=== PATIENT | female | born 1995 | race Caucasian/White ===

== ENCOUNTER 2018-09-16 20:05 | Emergency (ER) | payer MEDICAID ==
[2018-09-16 20:54] VITALS: BP 123/99
--- NOTE | 2018-09-17 00:41 | ER Document Report ---
ED Medical Screen (RME) - General Chief Complaint: Pelvic Pain Stated Complaint: PELVIC NUMBNESS Time Seen by Provider: 09/17/18 00:36 Primary Care Provider: CHANEL LAM PA-C [Primary Care Provider] - Follow up as needed Notes: Patient is a 23-year-old female presents to the emergency department with generalized numbness in her pelvic region. Patient states 10 days ago she started with generalized pain in her rectal region. States then 2 days ago she noted a generalized lack of feeling. States her rectum all the way to her vagina she "cannot feel it." She is denying any loss of bowel or bladder or urinary retention. States she tried to pass her stool yesterday and sat on the toilet" nothing came out." Patient states she does feel the urge to urinate and does urinate but when she wipes she states she "cannot feel it." Patient states she presents to an urgent care prior to arrival to the emergency room. States they did a rectal examination and the provider told her she had "no rectal tone." Told her to come to the emergency department for an MRI. GENERAL: Alert, interacts well. No acute distress. Rectal exam: [employer] [place] MYERS patient has good rectal tone and upon initial insertion of my right index finger patient says "oh my God what are you doing." I discussed this case with my attending Dr. Shin. Patient does appear to have good rectal tone and can obviously feel rectal examination based on the way she reacted to my digital exam. Patient states she felt "a lot of pressure." Dr. Shin and iron agreements that the patient can stay in the emergency department to receive her routine MRI in the morning as she is describing saddle anesthesia. At this point time there is no indication to emergently transfer to another facility for MRI. I discussed this with patient. Patient states she will wait in the waiting room. Currently awaiting bed assignment. I have greeted and performed a rapid initial assessment of this patient. A comprehensive ED assessment and evaluation of the patient, analysis of test results and completion of the medical decision making process will be conducted by additional ED providers. I have specifically instructed the patient or family members with the patient to immediately return to any nursing staff should anything change in the patient's condition or with their chief complaint. This medical record was dictated with voice recognizing software. There may be grammatical, syntax errors that are unintended. TRAVEL OUTSIDE OF THE [place] IN LAST 30 DAYS: No - Related Data Allergies/Adverse Reactions: No Known Allergies Allergy (Verified 04/17/15 00:07) Past Medical History Pulmonary Medical History: Reports: Hx Bronchitis Renal/ Medical History: Reports: Hx Ovarian Cysts Psychiatric Medical History: Reports: Hx Bipolar Disorder - No meds for 4 months Past Surgical History: Reports: Hx Adenoidectomy, Hx Dilation and Curettage, Hx Gynecologic Surgery - for endometriosis 2008. Right ovary and cyst and oophorectom in Nov 2014., Hx Oral Surgery, Hx Tonsillectomy - Immunizations Immunizations up to date: No Hx Diphtheria, Pertussis, Tetanus Vaccination: No Physical Exam - Vital signs Vitals: Temp Pulse Resp BP Pulse Ox 98.9 F 103 H 20 123/99 H 98 09/16/18 20:50 09/16/18 20:50 09/16/18 20:50 09/16/18 20:50 09/16/18 20:50 Course - Vital Signs Vital signs: Temp Pulse Resp BP Pulse Ox 98.9 F 103 H 20 123/99 H 98 09/16/18 20:50 09/16/18 20:50 09/16/18 20:50 09/16/18 20:50 09/16/18 20:50 Doctor's Discharge - Discharge Referrals: CHANEL LAM PA-C [Primary Care Provider] - Follow up as needed
== END 2018-09-17 00:50 | disposition left against medical advice (07) ==
LOC: ER 20:05
DX: R10.2 Pelvic and perineal pain (principal); R20.0 Anesthesia of skin; K62.89 Other specified diseases of anus and rectum
CPT/HCPCS: 99281

== ENCOUNTER 2018-09-17 08:34 | Emergency (ER) | payer MEDICAID ==
--- NOTE | 2018-09-17 09:10 | ER Document Report ---
ED Medical Screen (RME) - General Chief Complaint: Pelvic Pain Stated Complaint: PELVIC PAIN Time Seen by Provider: 09/17/18 09:02 Primary Care Provider: CHANEL LAM PA-C [Primary Care Provider] - Follow up as needed Mode of Arrival: Ambulatory Information source: Patient Notes: 23-year-old female patient presented to ED for complaint of generalized numbness to the pelvic region and rectal pain for 10 days. She states she went to her primary care doctor and they told her they did not feel any rectal tone and told her she needed to come to the emergency department to get an MRI. She was examined by the provider that saw her in pit yesterday evening and told that she did have rectal time and she could wait in the emergency room and be seen in waiting for a MRI in the morning or she can return to the emergency room and be examined and determine if she needed an MRI at that time. The provider stated that at the last night there was no need for an emergency transfer for an MRI. Patient stated at the time that she was going away but then left and went home. Patient is back now stating she wants her MRI. I have explained to her she needs to be examined by a provider to determine the need for a MRI. I have greeted and performed a rapid initial assessment of this patient. A comprehensive ED assessment and evaluation of the patient, analysis of test results and completion of medical decision making process will be conducted by an additional ED providers. Dictation of this chart was performed using voice recognition software; therefore, there may be some unintended grammatical errors. TRAVEL OUTSIDE OF THE [place] IN LAST 30 DAYS: No - Related Data Allergies/Adverse Reactions: No Known Allergies Allergy (Verified 04/17/15 00:07) Past Medical History Pulmonary Medical History: Reports: Hx Bronchitis Renal/ Medical History: Reports: Hx Ovarian Cysts Psychiatric Medical History: Reports: Hx Bipolar Disorder - No meds for 4 months Past Surgical History: Reports: Hx Adenoidectomy, Hx Dilation and Curettage, Hx Gynecologic Surgery - for endometriosis 2008. Right ovary and cyst and oophorectom in Nov 2014., Hx Oral Surgery, Hx Tonsillectomy - Immunizations Immunizations up to date: No Hx Diphtheria, Pertussis, Tetanus Vaccination: No Physical Exam - Vital signs Vitals: Temp Pulse Resp BP Pulse Ox 99.1 F 94 18 140/91 H 97 09/17/18 08:52 09/17/18 08:52 09/17/18 08:52 09/17/18 08:52 09/17/18 08:52 Course - Vital Signs Vital signs: Temp Pulse Resp BP Pulse Ox 99.1 F 94 18 140/91 H 97 09/17/18 08:52 09/17/18 08:52 09/17/18 08:52 09/17/18 08:52 09/17/18 08:52 Doctor's Discharge - Discharge Referrals: CHANEL LAM PA-C [Primary Care Provider] - Follow up as needed
--- NOTE | 2018-09-17 11:07 | RADIOLOGY REPORT (SQ) ---
EXAM DESCRIPTION: MRI LUMBAR SPINE WITHOUT COMPLETED DATE/TIME: 09/17/2018 10:49 am REASON FOR STUDY: lumbar mri numbness to pelvic area COMPARISON: None. TECHNIQUE: Sagittal and Axial imaging includes T1, T2, STIR and gradient echo sequences. Coronal T2/ HASTE imaging. LIMITATIONS: None. FINDINGS: VISUALIZED UPPER ABDOMEN: Limited evaluation. No acute or suspicious findings suggested. SEGMENTATION: No transitional anatomy. The lowest well-developed disc space is labeled L5-S1. ALIGNMENT: Anatomic. VERTEBRAE: Intact. BONE MARROW: Normal. No marrow replacement or reactive changes. DISC SIGNAL: There is disc desiccation and broad-based posterior disc bulging at L4-L5 and L5-S1. POSTERIOR ELEMENTS: Generally intact. No pars defect evident. HARDWARE: None in the spine. CORD AND CONUS: Normal in size and signal intensity. Conus at the appropriate level. SOFT TISSUES: No aortic aneurysm seen. No bulky retroperitoneal adenopathy or mass. No paraspinal mas s or fluid. L1-L2: No significant spinal stenosis or exit foraminal stenosis. L2-L3: No significant spinal stenosis or exit foraminal stenosis. L3-L4: No significant spinal stenosis or exit foraminal stenosis. L4-L5: No significant spinal stenosis or exit foraminal stenosis. L5-S1: No significant spinal stenosis or exit foraminal stenosis. LOWER THORACIC: Incompletely imaged. No stenosis seen. SACRUM: Visualized upper sacrum intact. OTHER: No other significant findings. IMPRESSION: There is disc desiccation and broad-based central posterior disc bulging at L4-L5 and L5 -S1. There is no high-grade lumbar canal or neural foraminal stenosis. TECHNICAL DOCUMENTATION: JOB ID: [id number] [employer]- All Rights Reserved Reading location - IP/workstation name: [id number]
--- NOTE | 2018-09-17 11:11 | ER Document Report ---
ED General - General Chief Complaint: Pelvic Pain Stated Complaint: PELVIC PAIN Time Seen by Provider: 09/17/18 09:02 Primary Care Provider: TREVOR COFFMAN MD [COMMUNITY BASED STAFF] - Follow up in 3-5 days (For neurosurgery follow up for low back pain) Mode of Arrival: Ambulatory TRAVEL OUTSIDE OF THE [place] IN LAST 30 DAYS: No - HPI Notes: 23-year-old female to the emergency department with complaints of lower back pain and rectal and vaginal decreased sensation. States that this has been going on for about 10 days and getting worse. States that she has not had any bladder or bowel incontinence, radiculopathy down the legs, fevers chills, IV drug abuse, recent injury, frequent bicycle riding. She was seen last night for the same and was supposed to get an MRI but left prior to getting MRI. States that she went to urgent care and was told to come back to the emergency department because she had some decrease in her rectal tone. States that she was given antibiotics last night for urinary tract infection as well. - Related Data Allergies/Adverse Reactions: No Known Allergies Allergy (Verified 04/17/15 00:07) Past Medical History - General Information source: Patient - Social History Smoking Status: Current Every Day Smoker Chew tobacco use (# tins/day): No Frequency of alcohol use: None Drug Abuse: None Family History: Reviewed & Not Pertinent, DM, Malignancy Patient has suicidal ideation: No Patient has homicidal ideation: No Pulmonary Medical History: Reports: Hx Bronchitis Renal/ Medical History: Reports: Hx Ovarian Cysts. Denies: Hx Peritoneal Dialysis Psychiatric Medical History: Reports: Hx Bipolar Disorder - No meds for 4 months Past Surgical History: Reports: Hx Adenoidectomy, Hx Cholecystectomy, Hx Dilation and Curettage, Hx Gynecologic Surgery - for endometriosis 2008. Right ovary and cyst and oophorectom in Nov 2014., Hx Oral Surgery, Hx Tonsillectomy - Immunizations Immunizations up to date: No Hx Diphtheria, Pertussis, Tetanus Vaccination: No Review of Systems - Review of Systems Constitutional: denies: Chills, Fever EENT: No symptoms reported Cardiovascular: denies: Chest pain, Palpitations, Dizziness, Lightheaded Gastrointestinal: Other - Rectal and vaginal decreased sensation. denies: No symptoms reported, Abdomen distended, Abdominal pain, Vomiting, Constipation Genitourinary: denies: Frequency, Urgency Musculoskeletal: Back pain Neurological/Psychological: No symptoms reported -: Yes All other systems reviewed and negative Physical Exam - Vital signs Vitals: Temp Pulse Resp BP Pulse Ox 99.1 F 94 18 140/91 H 97 09/17/18 08:52 09/17/18 08:52 09/17/18 08:52 09/17/18 08:52 09/17/18 08:52 Interpretation: Normal - General General appearance: Appears well In distress: None Notes: Morbid obesity - HEENT Head: Normocephalic, Atraumatic Eyes: Normal Pupils: PERRL - Respiratory Respiratory status: No respiratory distress Chest status: Nontender Breath sounds: Normal Chest palpation: Normal - Cardiovascular Rhythm: Regular Heart sounds: Normal auscultation Murmur: No - Abdominal Inspection: Normal Distension: No distension Bowel sounds: Normal Tenderness: Nontender Organomegaly: No organomegaly - Rectal Tenderness: No Stool: Other - She it has good rectal tone. She states that she has some decreased sensation during rectal exam but states that she can still feel pressure during exam Notes: rectal exam chaperoned by it field technician - Back Back: Tender - The midline tenderness to palpation over the L4 L5-S1 region with no step-off or deformity. Negative straight leg raise. Patient is able to ambulate about the room with no difficulty - Extremities General upper extremity: Normal inspection, Nontender, Normal color, Normal ROM, Normal temperature General lower extremity: Normal inspection, Nontender, Normal color, Normal ROM, Normal temperature, Normal weight bearing. No: Dariana's sign - Neurological Neuro grossly intact: Yes Cognition: Normal Orientation: AAOx4 [place] Coma Scale Eye Opening: Spontaneous [place] Coma Scale Verbal: Oriented Paty Coma Scale Motor: Obeys Commands [place] Coma Scale Total: 15 Speech: Normal Motor strength normal: LUE, RUE, LLE, RLE Sensory: Normal - Psychological Associated symptoms: Normal affect, Normal mood - Skin Skin Temperature: Warm Skin Moisture: Dry Skin Color: Normal Course - Vital Signs Vital signs: Temp Pulse Resp BP Pulse Ox 98.2 F 95 18 141/73 H 98 09/17/18 12:29 09/17/18 12:29 09/17/18 12:29 09/17/18 12:29 09/17/18 12:29 - Diagnostic Test Radiology reviewed: Image reviewed, Reports reviewed Radiology results interpreted by me: 09/17/18 MRI reading of L4-L5 and L5-S1 disc bulging and disc desiccation. She has no evidence of spinal abscess, or cauda equina, - Transfer of Care Notes: 09/17/[address] Fletcher. We reviewed MRI together. Will plan on having patient follow with [facility] [employer] specialist outpatient. Will send home with pain meds as well as medrol dose rachel. Urged her to return if any bladder/bowel incontinence, urinary retention. Discharge - Discharge Clinical Impression: Low back pain, Bulging lumbar disc, Numbness Condition: Good Disposition: HOME, SELF-CARE Instructions: Low Back Pain ([facility]) Additional Instructions: FOLLOW UP WITH NEUROSURGERY WITHOUT FAIL. CALL THEM TOMORROW. RETURN IF WORSENING PAIN, BLADDER/BOWEL INCONTINENCE, FEVERS, OR ANY OTHER CONCERNS. Prescriptions: Hydrocodone/Acetaminophen [Bertram 5-325 Tablet] 1 each PO Q6H #12 tablet Methylprednisolone [Medrol Dosepack (4 mg/Tab) 21 Tab/Dosepak] 4 mg PO ASDIR PRN #21 tab.ds.pk PRN Reason: Forms: Return to Work Referrals: TREVOR COFFMAN MD [COMMUNITY BASED STAFF] - Follow up in 3-5 days (For neurosurgery follow up for low back pain)
[2018-09-17 12:35] VITALS: BP 141/73
== END 2018-09-17 12:35 | disposition home or self-care (01) ==
LOC: ER 08:34
DX: M51.86 Other intervertebral disc disorders, lumbar region (principal); M54.5 Low back pain; R20.0 Anesthesia of skin; F17.200 Nicotine dependence, unspecified, uncomplicated
CPT/HCPCS: 72148; 99283

== ENCOUNTER 2019-07-29 07:58 | Emergency (ER) | payer SELFPAY ==
[2019-07-29 08:28] LABS: ABSOLUTE EOSINOPHILS # (AUTO) 0.2 10^3/uL (0.0-0.6); ABSOLUTE LYMPHOCYTES (AUTO) 2.5 10^3/uL (0.5-4.7); ABSOLUTE MONOCYTES (AUTO) 0.5 10^3/uL (0.1-1.4); ABSOLUTE NEUT (AUTO) 6.9 10^3/uL (1.7-8.2); BASOPHILS % (AUTO) 0.4 % (0-2); HEMATOCRIT 43.8 % (36.0-47.0); HEMOGLOBIN 14.7 g/dL (12.0-15.5); LYMPHOCYTES % (AUTO) 24.1 % (13-45); MEAN CORPUSCULAR HEMOGLOBIN 28.6 pg (27.0-33.4); MEAN CORPUSCULAR HGB CONC 33.5 g/dL (32.0-36.0); MEAN CORPUSCULAR VOLUME 86 fl (80-97); MONOCYTES % (AUTO) 5.3 % (3-13); PLATELET COUNT 319 10^3/uL (150-450); RED BLOOD COUNT 5.12 10^6/uL (3.72-5.28); RED CELL DISTRIBUTION WIDTH 15.7 % (11.5-14.0); SEGMENTED NEUTROPHILS % (AUTO) 68.2 % (42-78); TOTAL CELLS COUNTED % (AUTO) 100 %; WHITE BLOOD COUNT 10.2 10^3/uL (4.0-10.5)
[2019-07-29 08:52] LABS: ALBUMIN 4.6 g/dL (3.5-5.0); ALKALINE PHOSPHATASE 61 U/L (38-126); ANION GAP 10 (5-19); ASPARTATE AMINO TRANSFERASE 24 U/L (14-36); BILIRUBIN,TOTAL 0.3 mg/dL (0.2-1.3); BLOOD UREA NITROGEN 13 mg/dL (7-20); CALCIUM 9.7 mg/dL (8.4-10.2); CARBON DIOXIDE 25 mmol/L (22-30); CHLORIDE 103 mmol/L (98-107); CREATINE KINASE 81 U/L (30-135); GLUCOSE 132 mg/dL (75-110); POTASSIUM 4.1 mmol/L (3.6-5.0); TOTAL PROTEIN 7.2 g/dL (6.3-8.2)
--- NOTE | 2019-07-29 08:53 | RADIOLOGY REPORT (SQ) ---
EXAM DESCRIPTION: CHEST SINGLE VIEW IMAGES COMPLETED DATE/TIME: 07/29/2019 8:38 am REASON FOR STUDY: right sided cp COMPARISON: 02/18/2014 EXAM PARAMETERS: NUMBER OF VIEWS: One view. TECHNIQUE: Single frontal radiographic view of the chest acquired. RADIATION DOSE: NA LIMITATIONS: Poor inspiratory effort. FINDINGS: LUNGS AND PLEURA: No opacities, masses or pneumothorax. No pleural effusion. MEDIASTINUM AND HILAR STRUCTURES: No masses. Contour normal. HEART AND VASCULAR STRUCTURES: Heart normal in size. Normal vasculature. BONES: No acute findings. HARDWARE: None in the chest. OTHER: No other significant finding. IMPRESSION: NO ACUTE RADIOGRAPHIC FINDING IN THE CHEST. TECHNICAL DOCUMENTATION: JOB ID: [id number] 2010 [employer]- All Rights Reserved Reading location - IP/workstation name: [email or web address]
[2019-07-29 09:12] LABS: CREATINE KINASE MB 0.64 ng/mL (<4.55)
[2019-07-29 09:13] LABS: TROPONIN I < 0.012 ng/mL
[2019-07-29] MEDS ORDERED: KETOROLAC TROMETHAMINE INJ/PF 30 MG/1 ML SDV IV ONE (10:16)
--- NOTE | 2019-07-29 12:07 | ER Document Report ---
Entered by PONCE CORREA SCRIBE 07/29/19 0914 Acting as scribe for:KATLIN MCKEE MD ED General - General Chief Complaint: Chest Pain Stated Complaint: RIB PAIN Time Seen by Provider: 07/29/19 08:54 Information source: Patient Notes: This 24-year-old female presents to the emergency department complaining of right-sided chest wall pain for the past 2-3 days. Patient explains that the chest wall pain woke her from her sleep this morning. Patient states that her chest wall pain is worsened with coughing. Patient reports chronic cough that is non-productive. Patient states "I smoke to many cigarettes" and "I cough all the time but now my chest hurts". Patient denies fever, chills, nausea, vomiting and covid-19 exposure. Patient reports recent travel to [place] 6 days ago. TRAVEL OUTSIDE OF THE [place] IN LAST 30 DAYS: No - Related Data Allergies/Adverse Reactions: No Known Allergies Allergy (Verified 04/17/15 00:07) Past Medical History - General Information source: Patient - Social History Smoking Status: Current Every Day Smoker Cigarette use (# per day): Yes Chew tobacco use (# tins/day): No Frequency of alcohol use: None Drug Abuse: None Family History: Reviewed & Not Pertinent, DM, Malignancy Patient has homicidal ideation: No Pulmonary Medical History: Reports: Hx Bronchitis Renal/ Medical History: Reports: Hx Ovarian Cysts Psychiatric Medical History: Reports: Hx Anxiety, Hx Bipolar Disorder - No meds for 4 months, Hx Depression Past Surgical History: Reports: Hx Adenoidectomy, Hx Cholecystectomy, Hx Dilation and Curettage, Hx Gynecologic Surgery - for endometriosis 2008. Right ovary and cyst and oophorectom in Nov 2014., Hx Oral Surgery, Hx Tonsillectomy - Immunizations Immunizations up to date: No Hx Diphtheria, Pertussis, Tetanus Vaccination: No Review of Systems - Review of Systems Constitutional: See HPI. denies: Fever EENT: No symptoms reported Cardiovascular: See HPI, Chest pain Respiratory: See HPI, Cough Gastrointestinal: See HPI. denies: Nausea, Vomiting Genitourinary: No symptoms reported Female Genitourinary: No symptoms reported Musculoskeletal: No symptoms reported Skin: No symptoms reported Hematologic/Lymphatic: No symptoms reported Neurological/Psychological: No symptoms reported -: Yes All other systems reviewed and negative Physical Exam - Vital signs Vitals: Resp Pulse Ox 19 96 07/29/19 08:15 07/29/19 08:15 - Notes Notes: Physical Exam: General: Alert, appears well. HEENT: Normocephalic. Atraumatic. PERRL. Extraocular movements intact. Oropharynx clear. Neck: Supple. Non-tender. Respiratory: No respiratory distress. Clear and equal breath sounds bilaterally. Reproducible right-sided chest wall pain that is greater with a deep breath. No crepitus, bruise or rash. Cardiovascular: Regular rate and rhythm. Abdominal: Obese. Non-tender. No distension. Normal Bowel Sounds. Back: No gross abnormalities. Extremities: Moves all four extremities. Upper extremities: Normal inspection. Normal ROM. Lower extremities: Normal inspection. No edema. Normal ROM. Neurological: Normal cognition. AAOx4. Normal speech. Psychological: Normal affect. Normal Mood. Skin: Warm. Dry. Normal color. Course - Re-evaluation Re-evalutation: 07/29/19 10:57 Patient complains of right sided lower anterior chest wall pain from coughing. Denies any productive sputum denies fever chills. Does smoke tobacco. Patient reports no signs or symptoms of COVID 19 virus denies fever chills sore throat. Denies any exposure that she is aware to the COVID-19 virus. 07/29/19 12:01 Patient reports that her chest wall pain has improved after treatment with IV ketorolac. - Vital Signs Vital signs: Temp Pulse Resp BP Pulse Ox 98.1 F 33 H 139/84 H 98 07/29/19 08:31 07/29/19 09:03 07/29/19 09:03 07/29/19 09:03 - Laboratory Result Diagrams: 07/29/19 08:12 07/29/19 08:12 Laboratory results interpreted by me: 07/29/19 07/29/19 08:12 08:12 RDW 15.7 H Glucose 132 H 07/29/19 10:58 Labs within normal limits. Including d-dimer is not elevated. Doubt if patient has pulmonary embolus with that result. 07/29/19 12:02 Laboratories within normal limits not showing any acute process blood sugar 132. Initial troponin negative for any acute process inasmuch as patient's pain is right-sided and patient has no risk factors other than smoking for cardiac disease doubt that is any coronary artery disease in this patient with low risk therefore a second troponin was not ordered. - Diagnostic Test Radiology reviewed: Reports reviewed Radiology results interpreted by me: 07/29/19 12:03 Chest x-ray disclose no acute process. - EKG Interpretation by Me Additional EKG results interpreted by me: 07/29/19 12:03 Twelve-lead EKG shows normal sinus rhythm rate of 91 inferior Q waves noted as a normal variant no acute process noted. Discharge - Discharge Clinical Impression: Chest wall pain, Tobacco abuse disorder Condition: Stable Disposition: HOME, SELF-CARE Instructions: Chest Wall Pain ([facility]) Prescriptions: Ibuprofen [Motrin 800 mg Tablet] 800 mg PO Q8H PRN #30 tab PRN Reason: pain Forms: Smoking Cessation Education I personally performed the services described in the documentation, reviewed and edited the documentation which was dictated to the scribe in my presence, and it accurately records my words and actions.
[2019-07-29 12:31] VITALS: BP 119/79
--- NOTE | 2019-07-29 21:36 | EKG REPORT ---
SEVERITY:- BORDERLINE ECG - SINUS RHYTHM INFERIOR Q WAVES, PROBABLY NORMAL VARIATION : Confirmed by: Duran Badillo MD 29-Jul-2019 21:36:03
== END 2019-07-29 12:28 | disposition home or self-care (01) ==
LOC: ER 07:58
DX: R07.89 Other chest pain (principal); R05 Cough; F17.210 Nicotine dependence, cigarettes, uncomplicated
CPT/HCPCS: 93005; 99284; 96374; 36415; 82553; 82550; 85025; 80053; 84484; 85379; 71045; 93010; J1885

== ENCOUNTER 2020-02-02 00:13 | Emergency (ER) | payer OTHER ==
[2020-02-02 00:39] VITALS: BP 144/92
--- NOTE | 2020-02-02 00:43 | ER Document Report ---
ED Medical Screen (RME) - General Chief Complaint: Shortness Of Breath Stated Complaint: SHORTNESS OF BREATH,EYE PAIN Time Seen by Provider: 02/02/20 00:24 Mode of Arrival: Ambulatory Information source: Patient Notes: Patient is a 24-year-old female comes emergency room complaining of complaints. First of all patient is primary reason for coming in is because of her left upper eyelid being swollen and painful. And the second reason she is here because she thinks she has bronchitis. 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 She denies any fever but states she does not take her temperature. He has no history of asthma or other medical problems and is currently on no medications. She does smoke approximately half a pack of cigarettes a day. Patient denies any productive cough at this time. She has complaints of being short of breath. Physical examination: Patient is a well-nourished well-developed 24-year-old female no apparent distress on examination this morning. Cardiac: Shows a tachycardic rate at about 140 bpm. Her blood pressure was 144/92 and first saturation was 99% on room air with a temp of 97.8. Next Lungs: Bilateral breath sounds breath sounds decreased throughout no rhonchi rales or wheeze heard. Abdomen: Bowel sounds present all 4 quads nontender to palpate. HEENT: Examination patient's left thigh shows the upper lid to be moderately swollen mildly tender to palpate. There is no discharge noted from the area. There is a firm nodule palpated in the middle of the upper right of it. Further examination of the does not show any injection of the sclera or conjunctiva. Inform patient that she currently has hordeolum on the left upper eye. Needs an antibiotic cream and you can compresses. She is also informed and asked if she wants a Covid test and further work-up and she admits that she knows. At this time we will just do a chest x-ray since she has no fever and vital signs are relatively stable and a Covid test. Given those findings provider may decide to go further. Do not feel it is necessary for any blood work at this time I have greeted and performed a rapid initial assessment of this patient. A comprehensive ED assessment and evaluation of the patient, analysis of test results and completion of the medical decision making process will be conducted by additional ED providers. Dictation of this chart was performed using voice recognition software; therefore, there may be some unintended grammatical errors. TRAVEL OUTSIDE OF THE [place] IN LAST 30 DAYS: No - Related Data Allergies/Adverse Reactions: No Known Allergies Allergy (Verified 02/02/20 00:31) Past Medical History - Social History Frequency of alcohol use: None Drug Abuse: None Pulmonary Medical History: Reports: Hx Bronchitis Neurological Medical History: Denies: Hx Parkinson's Disease Renal/ Medical History: Reports: Hx Ovarian Cysts. Denies: Hx Peritoneal Dialysis Psychiatric Medical History: Reports: Hx Anxiety, Hx Bipolar Disorder - No meds for 4 months, Hx Depression Past Surgical History: Reports: Hx Adenoidectomy, Hx Cholecystectomy, Hx Dilation and Curettage, Hx Gynecologic Surgery - for endometriosis 2008. Right ovary and cyst and oophorectom in Nov 2014., Hx Oral Surgery, Hx Tonsillectomy - Immunizations Immunizations up to date: No Hx Diphtheria, Pertussis, Tetanus Vaccination: No
--- OUTSIDE RECORDS SUMMARY | 2020-02-03 17:48 | XMS REPORT ---
:1995 [facility] [address] [place] [address] Care Team Providers Name Role Phone [facility] Primary Care Physician Unavailable Stacy Attending Clinician Unavailable Jackelyn LOUIE Attending Clinician Unavailable Aron Attending Clinician Unavailable MD Grecia Sunshine Attending Clinician Unavailable MD Epi Mann Attending Clinician Unavailable DO Edward Jenkins Attending Clinician Unavailable Edward Noel Attending Clinician Unavailable MD Bess Johnson Attending Clinician Unavailable MD Kedar Rodriguez Attending Clinician Unavailable MD James Escobedo Attending Clinician Unavailable Ferny Attending Clinician Unavailable Checo Attending Clinician Unavailable MD Ghazala Attending Clinician Unavailable MD Grecia Sunshine Admitting Clinician Unavailable MD Epi Mann Admitting Clinician Unavailable MD Kedar Rodriguez Admitting Clinician Unavailable MD James Escobedo Admitting Clinician Unavailable Ferny Admitting Clinician Unavailable Checo Admitting Clinician Unavailable Allergies, Adverse Reactions, Alerts This patient has no known allergies or adverse reactions. Medications Ordered Filled Start Stop Current Ordering Indication Dosage Frequency Signature Comments Components Medication Medication Date Date Medication? Clinician (SIG) Name Name lamoTRIgine Yes TAKE 1 TAKE 1 (LAMICTAL) 6-03 TABLET BY TABLE T BY 25 MG 00:00: MOUTH ONCE MOUTH tablet 00 DAILY FOR ONCE 2 WEEKS DAILY FOR AND THEN 2 WEEKS INCREASE AND THEN TO 2 ONCE INCREASE DAILY TO 2 ONCE DAILY traZODone Yes TAKE 1 TAKE 1 (DESYREL) 6-03 TABLET BY TABLET BY 100 MG 00:00: MOUTH AT MOUTH AT tablet 00 BEDTIME BEDTIME NEEDED NEEDED Robitussin Yes Murray 2 Every 6 Codeine 4-23 Hills Hours as 00:00: needed for 00 Pain Trimethopri 2018- No Griffin 1 Twice A m/Sulfameth -14 18 Alfred Dc Day oxazole 00:00: 00:00 (Septra Ds 00 :00 Tablet) 1 Each Tablet, 1 Tab Oral bupivacaine Yes ELLI III 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 for pain. ibuprofen 2019- No 600mg Take 1 Take 1 (ADVIL,MOTR 05-02 tablet tablet IN) 600 MG 00:00: 00:00 (600 mg (600 m g tablet 00 :00 total) by total) by mouth mouth every six every six (6) hours (6) hours as needed as needed for pain. for pain. sertraline 2016-03- No 100mg Take 2 Take 2 (ZOLOFT) 50 05-14 tablets tablet s MG tablet 00:00: 00:00 (100 mg (100 mg 00 :00 total) by total) by mouth mouth daily. daily. Amoxicillin 2016-03 Ally 500 Three (Amoxil) 2-15 12-30 Pac Hamm Times A 500 Mg 00:00: 00:00 Day Tablet, 500 00 :00 Mg Oral Lidocaine 2016-03 Ally 5 Every 6 Hcl 2-15 12-30 Pac Hamm Hours as (Lidocaine 00:00: 00:00 needed for Viscous 2% 00 :00 Pain Topical Soln) 100 Ml Soln, 5 Ml Oral Ibuprofen 2016-03 Yes Jamette 600 Every 6 (Motrin) 2-04 Bryson Do Hours for 600 Mg 00:00: Pain Tablet 00 Oxycodone/A 2016-03 Yes Jamette 1 Every 6 cetaminophe 2-04 Bryson Do Hours for n (Percocet 00:00: Pain 5/325) 1 00 Tab Tablet Sertraline 2016-03 Yes 50 Daily Hcl 0-09 (Zoloft) 50 04:33: Mg Tablet 44 promethazin 2015-03 2017- No 180 promethazi e 25 mg 0-27 02-20 ne 25 mg tablet 00:00: 00:00 tablet(RxN 00 :00 orm: [id number]) Ortho 2015-03 2017- No 28 Ortho Tri-Cyclen 0-27 02-20 Tri-Cyclen (28) 0.18 00:00: 00:00 (28) 0.18 mg(7)/0.215 00 :00 mg(7)/0.21 mg(7)/0.25 5 mg(7)-35 mg(7)/0.25 mcg tablet mg(7)-35 mcg tablet(RxN orm: -) famotidine Yes 20mg Take 20 mg Dwayne e 20 (PEPCID) 20 5-09 by mouth. mg b y MG tablet 00:00: mouth. 00 lurasidone Yes 40mg Take 40 mg Take 40 (LATUDA) 40 by mouth mg by mg Tab daily with mouth evening daily meal. with evening meal. clonazePAM Yes .5mg Take 0.5 Take 0 .5 (KLONOPIN) mg by mg by 0.5 MG mouth mouth tablet nightly as nightly needed for as needed anxiety. for anxiety. cyanocobala 2020- No 1000ug Take 1,000 Ta ke min 1000 06- mcg by 1,000 mcg MCG tablet 00:00 mouth by mouth :00 daily. daily. calcium 2020- No 500mg Chew 500 Chew 500 carbonate 06-23 mg. mg. (TUMS) 200 00:00 mg calcium :00 (500 mg) chewable tablet prenat.vits 2020- No Take by Take b y ,guido,min-ir 06- mouth. mouth. on-folic 00:00 Tab tablet :00 pantoprazol 2020- No 40mg Take 40 mg Dwayne e 40 e 06-23 by mouth mg by (PROTONIX) 00:00 daily. mouth 40 MG :00 daily. tablet cariprazine 2019- No 3mg Take 3 mg Take 3 mg (VRAYLAR) 3 -23 by mouth by mo uth mg cap 00:00 daily. daily. :00 cyanocobala 2020- No Inject Inject min 1,000 06-23 into the into th e mcg/mL 00:00 muscle muscle injection :00 every every thirty thirty (30) days. (30) days. 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 05-02 12:00:46 of cervix of cervix 00:00: (ELLI II) (ELLI II) 00 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 00:00: 00 Tonsillitis Exudative Problem Resolve 2016-03 with tonsillitis d 2-15 exudate 23:21: 00 Tonsillitis Exudative Problem Resolve 2016-03 with tonsillitis d 2-15 exudate 23:21: 00 Viral upper Viral upper Problem Resolve 2016-03 respiratory respiratory d 2-15 tract illness 21:06: infection 00 Bipolar Bipolar Condition Active 2016-032017-02-11 affective affective 04-13 20:45:09 disorder, disorder, 00:00: depressed, depressed, 00 moderate moderate H/O H/O Condition Active 2016-11-14 Ove rview: laparoscopy laparoscopy 07-04 19:03:49 Three for 00:00: endometr i 00 osis one for ovarian torsion. Removal of right ovary an d tube. FHx: Down's FHx: Down's Condition Active 2016-11-14 Overview: syndrome syndrome 07-04 19:05:46 FOB h as 00:00: family 00 history of down syndrome and mental retardat i on. 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 Hayden. - - Problem Active urine test urine test 2-20 confirms confirms(SN 00:00: OMED CT: 00 [id number]) 05/13/2016 active Contracepti Contracepti Problem Active 2015-03 on on(SNOMED 0-27 CT: 00:00: [id number]) 01/18/2016 active Weight Weight Problem Active 2015-03 finding finding(SNO 0-[address]: 00:00: [id number]) 01/18/2016 active Follow-up Follow-up Problem Active 2015-03 status status(SNOM 0-[address]: 00:00: [id number]) 01/18/2016 active H/O: H/O: Problem Active 2015-03 depression depression( 0-[address]: 00:00: [id number]) 01/18/2016 active Low risk Low risk Problem Active (S 9-[address]: 00:00: [id number]) 11/29/2015 active High risk High risk Problem Active (S 9-[address]: 00:00: [id number]) 00 11/29/2015 active Pap smear Pap smear [id number] Active 2019-09-14 abnormality abnormality 4-11 13:17:17 of cervix of cervix 00:00: with LGSIL with LGSIL 00 Generalized Generalized [id number] Active 2019-09-14 anxiety anxiety 3-17 13:17:16 disorder disorder 00:00: 00 Obesity Obesity [id number] Active 2019-09-14 3-17 13:17:16 00:00: 00 Depression Depression [id number] Active 2019-09-14 3-17 13:17:17 00:00: 00 Tobacco Tobacco [id number] Active 2019-09-14 abuse abuse 3-17 13:17:17 00:00: 00 Ovarian Ovarian [id number] Active 2019-09-14 cyst cyst 8-27 13:17:16 00:00: 00 High-risk High-risk Condition Resolve 2017-05-02 d 9-15 00:00:00 in third in third 00:00: trimester trimester 00 Obesity Obesity Condition Resolve 2017-05-02 affecting affecting d 4-13 00:00:00 00:00: in third in third 00 trimester trimester Tobacco Tobacco Condition Resolve 2017-05-02 smoking smoking d 4-13 00:00:00 complicatin complicatin 00:00: g g 00 in third in third trimester trimester Pre-operati Pre-operati Condition Resolve 2017-05-02 ve ve d 4-13 00:00:00 evaluation evaluation 00:00: for tubal for tubal 00 ligation ligation Depression Depression Condition Resolve 2017-05-02 affecting affecting d 4-13 00:00:00 00:00: in third in third 00 trimester, trimester, antepartum antepartum (NADER-HCC) (NADER-HCC) Procedures Procedure Date / Time Performed Performing Clinician [facility] e OFFICE/OUTPATIENT VISIT [facility] 2018-03-05 13:30:00 X-ray of chest, PA and lateral 2017-07-05 00:00:00 RYSEWYK, BREN T views X-ray of chest, PA and lateral 2017-07-05 00:00:00 RYSEWYK BREN T views Auto OV Level 2017-04-07 00:00:00 Anesthesia for procedure 2017-02-24 00:00:00 KESHA GAINES Anesthesia for intraperitoneal 2017-02-24 00:00:00 NABILA GAINES procedure of lower abdomen LAPAROSCOPY TUBAL CAUTERY 2017-02-24 00:00:00 TITO BRYSON Anesthesia for procedure 2017-02-24 00:00:00 KESHA GAINES Anesthesia for intraperitoneal 2017-02-24 00:00:00 NABILA GAINES procedure of lower abdomen LAPAROSCOPY TUBAL CAUTERY 2017-02-24 00:00:00 TITO BRYSON Anesthesia for procedure 2017-02-24 00:00:00 KESHA GAINES Anesthesia for intraperitoneal 2017-02-24 00:00:00 SABIHA GAINESI E procedure of lower abdomen Epidural injection 2017-01-03 00:00:00 RAMÓN MUNOZ DELIVERY OF PRODUCTS OF CONCEPTION, 2017-01-03 00:00:00 TITO BRYSON EXTERNAL APPROACH Epidural injection 2017-01-03 00:00:00 RAMÓN MUNOZ INTRODUCTION OF OTH HORMONE INTO 2017-01-02 00:00:00 CHRISTOPHE BRYSON PERIPH VEIN, PERC APPROACH Auto OV Level 2016-08-02 00:00:00 Results Test Description Test Time Test Comments Text Results Atomic Results Result Comments HEMOGLOBIN A1c WITH eAG 2018-03-05 14:36:00 Test Item Value Reference Range Comments HEMOGLOBIN A1c (test code = 56005854) 5.2 % of total Hgb <5.7 eAG (mg/dL) (test code = 38645913) 103 (calc) eAG (mmol/L) (test code = 46002528) 5.75.75.75.7 (calc) LIPID PANEL, [id number] 14:36:00 Test Item Value Reference Range Comments TRIGLYCERIDES (test code = 78398393) 163701 mg/dL <150 HDL CHOLESTEROL (test code = 00091346) 3737 mg/dL >50 CHOLESTEROL, TOTAL (test code = 109 mg/dL <200 27551245) NON HDL CHOLESTEROL (test code = 72 mg/dL (calc) <130 03603974) CHOL/HDLC RATIO (test code = 45879684) 2.92.9 (calc) <5.0 LDL-CHOLESTEROL (test code = 30365748) 189476 mg/dL (calc) CBC (INCLUDES DIFF/PLT)2018-03-05 14:36:00 Test Item Value Reference Range Comments LYMPHOCYTES (test code = 41636656) 30.6 % ABSOLUTE BASOPHILS (test code = 86741792) 34 cells/uL 0-200 HEMATOCRIT (test code = 63985047) 42.6 % 35.0-45.0 MONOCYTES (test code = 58710931) 5.2 % HEMOGLOBIN (test code = 92887971) 14.2 g/dL 11.7-15.5 BASOPHILS (test code = 41740878) 0.30.3 % NEUTROPHILS (test code = 55829237) 62.6 % ABSOLUTE LYMPHOCYTES (test code = 94836408) 3427 cells/uL 850- 3900 RDW (test code = 39675646) 13.4 % 11.0-15.0 ABSOLUTE NEUTROPHILS (test code = 57937194) 7011 cells/uL 1500 -7800 ABSOLUTE MONOCYTES (test code = 71892684) 582 cells/uL 200-95 0 ABSOLUTE EOSINOPHILS (test code = 82035316) 146 cells/uL 15-5 00 MCH (test code = 10063697) 28.5 pg 27.0-33.0 MPV (test code = 30726531) 10.1 fL 7.5-12.5 MCHC (test code = 34670340) 33.3 g/dL 32.0-36.0 RED BLOOD CELL COUNT (test code = 46726412) 4.99 Million/uL 3.80 -5.10 EOSINOPHILS (test code = 08666761) 1.3 % MCV (test code = 40131180) 85.4 fL 80.0-100.0 WHITE BLOOD CELL COUNT (test code = 11.2 Thousand/uL 3.8-10.8 19998775) PLATELET COUNT (test code = 70577879) 331 Thousand/uL 140-400 VITAMIN D,25-OH,TOTAL,GA4683-36-14 14:36:76233040TINYKWT9628-03-32 14:36:0028.2 COMPREHENSIVE METABOLIC [id number] 14:36:00 Test Item Value Reference Range Comments ALT (test code = 97469920) 27 U/L 6-29 ALBUMIN/GLOBULIN RATIO (test 2.2 (calc) 1.0-2.5 code = 56798970) ALBUMIN (test code = 4.7 g/dL 3.6-5.1 99406346) CARBON DIOXIDE (test code = 26 mmol/L 20-32 79083951) PROTEIN, TOTAL (test code = 6.8 g/dL 6.1-8.1 88366407) CREATININE (test code = 0.67 mg/dL 0.50-1.10 56345136) BILIRUBIN, TOTAL (test code = 0.3 mg/dL 0.2-1.2 92199631) UREA NITROGEN (BUN) (test 10 mg/dL 7-25 code = 29518524) SODIUM (test code = 48678651) 142 mmol/L 135-146 CHLORIDE (test code = 106 mmol/L 98-110 77361393) AST (test code = 93432429) 16 U/L 10-30 BUN/CREATININE RATIO (test NOT APPLICABLENOT APPLICABLE 6-22 code = 85270190) (calc) CALCIUM (test code = 9.7 mg/dL 8.6-10.2 05204990) POTASSIUM (test code = 4.3 mmol/L 3.5-5.3 36052331) ALKALINE PHOSPHATASE (test 63 U/L 33-115 code = 32116314) eGFR (test 143 mL/min/1.73m2 > OR = 60 code = 76265006) GLUCOSE (test code = 75 mg/dL 65-99 20546468) GLOBULIN (test code = 2.1 g/dL (calc) 1.9-3.7 63544223) eGFR NON-AFR. ARMENIAN (test 123 mL/min/1.73m2 > OR = 60 code = 30330219) USH2576-94-95 14:36:000.990.990.990.990.99VITAMIN [id number] 14:36:91593280 Group A Streptococcus Vkymae6675-90-72 02:16:00 Test Item Value Reference Range Comments Screening Streptococcus pyogenes antigen detection POSITIVE NEG (test code = 15227-2) RESULTS CALLED AND CORRECTLY READ BACK BY JULIET CORRIGAN AT 0215 FOR HANNA CLAROS MR# [id number] 19:05:00 Test Item Value Reference Range Comments Serum or plasma glucose measurement (mass/volume) 103 74-99 (test code = 2345-7) Blood Urea Auvvamkg5986-56-99 19:05:00 Test Item Value Reference Range Comments Serum or plasma urea nitrogen measurement 10 7-18 (mass/volume) (test code = 3094-0) Qovshqotbc7865-93-00 19:05:00 Test Item Value Reference Range Comments Serum or plasma creatinine measurement (mass/volume) 0.65 0.60-1.30 (test code = 2160-0) BUN/Creatinine Mduzx4011-11-48 19:05:00 Test Item Value Reference Range Comments Blood urea nitrogen/creatinine mass ratio (test code = 15.4 10-20 62877-7) Estimated GFR (Non- Tilyhkca9657-93-24 19:05:00 Test Item Value Reference Range Comments Estimated glomerular filtration rate (GFR) non- > 60 >60 Sudanese (test code = 81040-2) Reference Range: > or = 60 Units: mL/min/1.73 m2 Original MDRD Study Group Equation UsedEstimated GFR ()2017-07-05 19:05:00 Test Item Value Reference Range Comments Estimated glomerular filtration rate (GFR) > 60 >60 Sudanese (test code = 25941-8) Reference Range: > or = 60 Units: mL/min/1.73 m2 Original MDRD Study Group Equation UsedSodium [id number] 19:05:00 Test Item Value Reference Range Comments Serum or plasma sodium measurement (mass or 139 136- 145 moles/volume) (test code = 2951-2) Potassium Vrwyp1479-04-57 19:05:00 Test Item Value Reference Range Comments Serum or plasma potassium measurement (moles/volume) 3.9 3.5-5.1 (test code = 2823-3) Chloride [id number] 19:05:00 Test Item Value Reference Range Comments Serum or plasma chloride measurement (moles/volume) 105 98-107 (test code = 2075-0) Carbon Dioxide Qkjsk4819-02-18 19:05:00 Test Item Value Reference Range Comments Serum or plasma total carbon dioxide measurement 27 21-32 (moles/volume) (test code = 2028-9) Anion [id number] 19:05:00 Test Item Value Reference Range Comments Serum or plasma anion gap (test code = 40971-7) 7.0 4-16 Calculated Oopkfhskbx9814-72-06 19:05:00 Test Item Value Reference Range Comments Osmolality of Serum or Plasma by calculation (test 276 280-300 code = 08310-2) Calcium Xpjvz9373-07-25 19:05:00 Test Item Value Reference Range Comments Serum or plasma calcium measurement (mass/volume) 8.8 8.5-10.1 (test code = 34995-6) Total Mvaufne7781-82-31 19:05:00 Test Item Value Reference Range Comments Serum or plasma protein measurement (mass/volume) 7.3 6.4-8.2 (test code = 2885-2) Dktcqfw6695-41-42 19:05:00 Test Item Value Reference Range Comments Serum or plasma albumin measurement (mass/volume) 3.7 3.5-5.0 (test code = 1751-7) Total Qugkkgonp9907-79-41 19:05:00 Test Item Value Reference Range Comments Serum or plasma total bilirubin measurement 0.2 0.2- 1.0 (mass/volume) (test code = 1975-2) Aspartate Amino Transf (AST/SGOT)2017-07-05 19:05:00 Test Item Value Reference Range Comments Serum or plasma aspartate aminotransferase measurement 16 15-37 (enzymatic activity/volume) (test code = 1920-8) Alanine Aminotransferase (ALT/SGPT)2017-07-05 19:05:00 Test Item Value Reference Range Comments Serum or plasma alanine aminotransferase measurement 32 13-61 (enzymatic activity/volume) (test code = 1742-6) Alkaline Vzhhsuzpvrb0527-27-44 19:05:00 Test Item Value Reference Range Comments Serum or plasma alkaline phosphatase measurement 74 50-136 (enzymatic activity/volume) (test code = 6768-6) Urine [id number] 18:40:00 Test Item Value Reference Range Comments Urine sediment erythrocyte count by microscopy 0-5 0 -5 (number/high power field) (test code = 89792-8) Urine [id number] 18:40:00 Test Item Value Reference Range Comments Urine sediment leukocyte count by microscopy 0-5 0-5 (number/high power field) (test code = 5821-4) Urine Epithelial [id number] 18:40:00 Test Item Value Reference Range Comments Urine sediment epithelial cell count by microscopy 2+ NONE SEEN (number/low power field) (test code = 73391-8) Urine Anthzdfh6714-34-85 18:40:00 Test Item Value Reference Range Comments Bacteria detection in urine sediment by light 3+ NO NE,TRACE microscopy (test code = 95853-2) White Blood Kfnjk9242-86-11 18:36:00 Test Item Value Reference Range Comments Blood automated leukocyte count (test code = 6690-2) 14.7 4.8-10.8 Red Blood Uywfb2743-55-61 18:36:00 Test Item Value Reference Range Comments Blood erythrocytes count (number/volume) (test code = 4.89 4.1-5.2 89382-8) Mwjozbpchp0741-52-94 18:36:00 Test Item Value Reference Range Comments Blood hemoglobin measurement (mass/volume) (test code 13.4 12.0-16.0 = 718-7) Jzykabjxha1067-06-76 18:36:00 Test Item Value Reference Range Comments Blood hematocrit (volume fraction) (test code = 42.1 37.0-47.0 23662-5) Mean Corpuscular Ltmsjp2541-22-63 18:36:00 Test Item Value Reference Range Comments Automated erythrocyte mean corpuscular volume (test 86.0 80.0-98.0 code = 787-2) Mean Corpuscular Tzzaviatmq4829-06-12 18:36:00 Test Item Value Reference Range Comments MCH (test code = 05963-3) 27.3 27.0-32.0 Mean Corpuscular Hemoglobin Dhtytue9593-54-20 18:36:00 Test Item Value Reference Range Comments Erythrocyte mean corpuscular hemoglobin concentration 31.8 33.0-36.0 measurement (mass/volume) (test code = 95617-5) Red Cell Distribution Tjblv3794-68-69 18:36:00 Test Item Value Reference Range Comments Erythrocyte distribution width ratio (test code = 14.7 10.0-14.5 12072-4) Platelet Arahe6614-58-54 18:36:00 Test Item Value Reference Range Comments Blood platelets count (number/volume) (test code = 302 130-400 98365-5) Neutrophils (%) (Auto)2017-07-05 18:36:00 Test Item Value Reference Range Comments Neutrophils seg % bld (test code = 69462-9) 75.9 42.0 -75.0 Lymphocytes (%) (Auto)2017-07-05 18:36:00 Test Item Value Reference Range Comments Automated lymphocyte count as percentage of total 18.9 20.0-51.0 leukocytes (test code = 65486-3) Monocytes (%) (Auto)2017-07-05 18:36:00 Test Item Value Reference Range Comments [place] % (test code = 5905-5) 3.1 3.5-12.0 Eosinophils (%) (Auto)2017-07-05 18:36:00 Test Item Value Reference Range Comments Eos % (test code = 713-8) 2.0 0.0-2.0 Basophils (%) (Auto)2017-07-05 18:36:00 Test Item Value Reference Range Comments Baso % (test code = 706-2) 0.2 0.0-1.0 Neutrophils # (Auto)2017-07-05 18:36:00 Test Item Value Reference Range Comments Absolute neutrophil count (test code = 751-8) 11.1 1. 4-6.5 Lymphocytes # (Auto)2017-07-05 18:36:00 Test Item Value Reference Range Comments Absolute lymphocyte count (test code = 88398-3) 2.8 1.2-3.4 Monocytes # (Auto)2017-07-05 18:36:00 Test Item Value Reference Range Comments Absolute monocyte count (test code = 742-7) 0.5 0.1- 0.6 Eosinophils # (Auto)2017-07-05 18:36:00 Test Item Value Reference Range Comments Blood eosinophils count (number/volume) (test code = 0.3 0.0-0.5 82207-4) Basophils # (Auto)2017-07-05 18:36:00 Test Item Value Reference Range Comments Blood basophils count (number/volume) (test code = 0.0 0.0-0.1 63385-2) Urine Collection Paaw5129-38-65 18:28:00 Test Item Value Reference Range Comments UA (urinalysis) (test code = 49816-2) URN,CC Urine [id number] 18:28:00 Test Item Value Reference Range Comments Urine color determination (test code = 5778-6) YELLOW Y ELLOW Urine Ehdyqriyjk0544-39-33 18:28:00 Test Item Value Reference Range Comments Urine appearance determination (test code = 5767-9) CLOUDY CLEAR Urine Glucose (UA)2017-07-05 18:28:00 Test Item Value Reference Range Comments Urine glucose detection by test strip (test code = NEGATIVE NEGATIVE 04889-7) Urine Awftpzyfm1615-50-66 18:28:00 Test Item Value Reference Range Comments Urine total bilirubin detection by test strip (test NEGATIVE NEGATIVE code = 5770-3) Urine Pmqtoav4005-38-03 18:28:00 Test Item Value Reference Range Comments Urine ketones detection by test strip (test code = NEGATIVE NEGATIVE 2514-8) Urine Specific [id number] 18:28:00 Test Item Value Reference Range Comments Specific gravity of Urine by Refractometry automated 1.024 1.010-1.025 (test code = 21618-6) Urine Occult [id number] 18:28:00 Test Item Value Reference Range Comments Urine erythrocytes detection (test code = 69242-4) NEGATIVE NEG, TRACE Urine [id number] 18:28:00 Test Item Value Reference Range Comments Urine pH measurement (test code = 2756-5) 6.0 5.0-7. 5 Urine Bzpqbfj8583-85-70 18:28:00 Test Item Value Reference Range Comments Urine protein detection by test strip (test code = NEGATIVE NEG, TRACE 88083-5) Urine Kfgfeqczknaq4868-24-75 18:28:00 Test Item Value Reference Range Comments Urine urobilinogen measurement (test code = 50166-7) 0.2 >0.2 Urine [id number] 18:28:00 Test Item Value Reference Range Comments Urine nitrite detection (test code = 26405-4) NEGATIVE NE GATIVE Urine Leukocyte Ttscdfob5151-47-16 18:28:00 Test Item Value Reference Range Comments Leukocyte esterase ur dipstick (test code = 5799-2) SMALL NEG, TRACE Group A Streptococcus Hpuxdt6702-89-11 21:00:00 Test Item Value Reference Range Comments Screening Streptococcus pyogenes antigen detection NEGATIVE NEG (test code = 49055-9) REFLEXING TEST TO STREP A CULTURE PER PROTOCOL. NEGATIVE RAPID STREP SCREEN REQUIRES VERIFICATION BYCULTURE. PLEASE SEND CULTURE SPECIMEN.Urine Amphetamines [id number] 11:21:00 Test Item Value Reference Range Comments Urine amphetamine screening test (test code = Negative Ne gative 80247-4) Urine Barbiturates [id number] 11:21:00 Test Item Value Reference Range Comments Urine barbiturates screen (test code = 951484505) Negative Negative Urine Benzodiazepines Jxubal4316-50-92 11:21:00 Test Item Value Reference Range Comments Urine benzodiazepines detection by screening method Negative Negative (test code = 54856-6) Urine Cocaine [id number] 11:21:00 Test Item Value Reference Range Comments Screening urine benzoylecgonine detection >150 Negative N egative ng/ml (test code = 52385-7) Urine Methadone, Kmuvlzgrfnf1851-74-15 11:21:00 Test Item Value Reference Range Comments Urine methadone screen (test code = 68638-4) Negative Neg ative Urine Opiates Ipesvb7116-24-55 11:21:00 Test Item Value Reference Range Comments Urine opiates screening test (test code = 99824-2) Negative Negative Urine Phencyclidine Oritlf5872-71-99 11:21:00 Test Item Value Reference Range Comments Urine phencyclidine detection by screening method Negative Negative (test code = 50577-3) Urine Marijuana (THC) Dnhama9913-80-71 11:21:00 Test Item Value Reference Range Comments Urine cannabinoids detection by screening method Negative Negative (test code = 53809-5) Urine Tricyclic Dygmbqliytntcrm6087-44-50 11:15:00 Test Item Value Reference Range Comments Qualitative urine tricyclic antidepressant Negative Negat ondina measurement (test code = 79670-6) Serum Test, Wlyijwchskn2730-45-88 11:10:00 Test Item Value Reference Range Comments Serum test (test code = 35197-5) NEGATIVE NEGAT [place] White Blood Epeiw1734-13-14 10:58:00 Test Item Value Reference Range Comments Blood automated leukocyte count (test code = 6690-2) 8.1 4.8-10.8 Red Blood Yuepg4002-21-56 10:58:00 Test Item Value Reference Range Comments Blood erythrocytes count (number/volume) (test code = 4.62 4.1-5.2 71911-9) Lqmzrtmyud4187-56-83 10:58:00 Test Item Value Reference Range Comments Blood hemoglobin measurement (mass/volume) (test code 13.0 12.0-16.0 = 718-7) Xlruxqeezj1780-56-62 10:58:00 Test Item Value Reference Range Comments Blood hematocrit (volume fraction) (test code = 41.8 37.0-47.0 40493-1) Mean Corpuscular Vgmbcn9229-38-03 10:58:00 Test Item Value Reference Range Comments Automated erythrocyte mean corpuscular volume (test 90.4 80.0-98.0 code = 787-2) Mean Corpuscular Yivjyaplfp2088-01-92 10:58:00 Test Item Value Reference Range Comments MCH (test code = 11090-0) 28.1 27.0-32.0 Mean Corpuscular Hemoglobin Ebyzpqi2300-66-90 10:58:00 Test Item Value Reference Range Comments Erythrocyte mean corpuscular hemoglobin concentration 31.1 33.0-36.0 measurement (mass/volume) (test code = 49072-4) Red Cell Distribution Wxpkn6780-57-52 10:58:00 Test Item Value Reference Range Comments Erythrocyte distribution width ratio (test code = 13.4 10.0-14.5 45055-7) Platelet Cvgly8984-99-48 10:58:00 Test Item Value Reference Range Comments Blood platelets count (number/volume) (test code = 305 130-400 02337-4) White Blood Tmnja0437-69-49 07:40:00 Test Item Value Reference Range Comments Blood automated leukocyte count (test code = 6690-2) 8.6 4.8-10.8 Red Blood Drpeg5635-50-65 07:40:00 Test Item Value Reference Range Comments Blood erythrocytes count (number/volume) (test code = 3.74 4.1-5.2 01675-4) Uhjhovuznx5794-07-44 07:40:00 Test Item Value Reference Range Comments Blood hemoglobin measurement (mass/volume) (test code 11.1 12.0-16.0 = 718-7) Ckkyhnxxfd1292-97-90 07:40:00 Test Item Value Reference Range Comments Blood hematocrit (volume fraction) (test code = 34.8 37.0-47.0 88713-6) Mean Corpuscular Sajfui5958-88-27 07:40:00 Test Item Value Reference Range Comments Automated erythrocyte mean corpuscular volume (test 93.2 80.0-98.0 code = 787-2) Mean Corpuscular Snxwmorriq9100-01-95 07:40:00 Test Item Value Reference Range Comments MCH (test code = 37608-2) 29.6 27.0-32.0 Mean Corpuscular Hemoglobin Qlqbcpx8790-45-00 07:40:00 Test Item Value Reference Range Comments Erythrocyte mean corpuscular hemoglobin concentration 31.7 33.0-36.0 measurement (mass/volume) (test code = 93343-0) Red Cell Distribution Xbant6005-90-55 07:40:00 Test Item Value Reference Range Comments Erythrocyte distribution width ratio (test code = 14.4 10.0-14.5 43411-9) Platelet Slmth2687-77-57 07:40:00 Test Item Value Reference Range Comments Blood platelets count (number/volume) (test code = 242 130-400 11645-1) Rapid Plasma Wwpsgy7068-31-75 14:03:00 Test Item Value Reference Range Comments Qualitative serum rapid plasma reagin (RPR) test NONREACTIVE NONREACTIVE (test code = 38330-4) Urine Amphetamines Bvikfj7688-89-46 22:48:00 Test Item Value Reference Range Comments Urine amphetamine screening test (test code = Negative Ne gative 02431-1) Urine Barbiturates Uxyyrr6319-51-02 22:48:00 Test Item Value Reference Range Comments Urine barbiturates screen (test code = 742138363) Negative Negative Urine Benzodiazepines Tvwrhd1072-97-89 22:48:00 Test Item Value Reference Range Comments Urine benzodiazepines detection by screening method Negative Negative (test code = 83819-4) Urine Cocaine Agmite9058-57-52 22:48:00 Test Item Value Reference Range Comments Screening urine benzoylecgonine detection >150 Negative N egative ng/ml (test code = 80585-3) Urine Methadone, Lsecduvlgqf5763-80-60 22:48:00 Test Item Value Reference Range Comments Urine methadone screen (test code = 59686-9) Negative Neg ative Urine Opiates Inwjts3409-35-65 22:48:00 Test Item Value Reference Range Comments Urine opiates screening test (test code = 43981-3) Negative Negative Urine Phencyclidine Thdpoh2932-23-14 22:48:00 Test Item Value Reference Range Comments Urine phencyclidine detection by screening method Negative Negative (test code = 39343-2) Urine Marijuana (THC) Ancdwk4970-12-18 22:48:00 Test Item Value Reference Range Comments Urine cannabinoids detection by screening method Negative Negative (test code = 85072-6) Urine KBD3287-19-91 22:37:00 Test Item Value Reference Range Comments Urine sediment erythrocyte count by microscopy 0-5 0 -5 (number/high power field) (test code = 40437-6) Urine USI6982-50-53 22:37:00 Test Item Value Reference Range Comments Urine sediment leukocyte count by microscopy 11-20 0-5 (number/high power field) (test code = 5821-4) Urine Epithelial Ejfbu5985-24-35 22:37:00 Test Item Value Reference Range Comments Urine sediment epithelial cell count by microscopy 3+ NONE SEEN (number/low power field) (test code = 54141-2) Urine Vawctezk3954-09-28 22:37:00 Test Item Value Reference Range Comments Bacteria detection in urine sediment by light 2+ NO NE,TRACE microscopy (test code = 99144-6) Urine Tricyclic Uftlbvrauxvabpo0372-95-92 22:29:00 Test Item Value Reference Range Comments Qualitative urine tricyclic antidepressant Negative Negat ondina measurement (test code = 29067-7) Urine Collection Uadv1703-13-51 22:26:00 Test Item Value Reference Range Comments UA (urinalysis) (test code = 04840-5) URN,CC Urine Zrwgj5460-25-52 22:26:00 Test Item Value Reference Range Comments Urine color determination (test code = 5778-6) DARK YELLOW Y ELLOW Urine Viqibastne8958-55-40 22:26:00 Test Item Value Reference Range Comments Urine appearance determination (test code = 5767-9) CLOUDY CLEAR Urine Glucose (UA)2017-01-02 22:26:00 Test Item Value Reference Range Comments Urine glucose detection by test strip (test code = NEGATIVE NEGATIVE 03877-7) Urine Krnbwojqh4735-12-15 22:26:00 Test Item Value Reference Range Comments Urine total bilirubin detection by test strip (test NEGATIVE NEGATIVE code = 5770-3) Urine Unsmvvf9776-27-64 22:26:00 Test Item Value Reference Range Comments Urine ketones detection by test strip (test code = NEGATIVE NEGATIVE 2514-8) Urine Specific Ekosyjb7477-32-48 22:26:00 Test Item Value Reference Range Comments Specific gravity of Urine by Refractometry automated 1.025 1.010-1.025 (test code = 64085-0) Urine Occult Zvixu3970-77-43 22:26:00 Test Item Value Reference Range Comments Urine erythrocytes detection (test code = 11364-9) NEGATIVE NEG, TRACE Urine rT6059-51-51 22:26:00 Test Item Value Reference Range Comments Urine pH measurement (test code = 2756-5) 6.5 5.0-7. 5 Urine Zqhpqse5182-07-89 22:26:00 Test Item Value Reference Range Comments Urine protein detection by test strip (test code = TRACE NEG, TRACE 23960-9) Urine Slfyohrbdjvq5169-97-49 22:26:00 Test Item Value Reference Range Comments Urine urobilinogen measurement (test code = 92279-9) 1.0 >0.2 Urine Kzcqsuy3300-72-14 22:26:00 Test Item Value Reference Range Comments Urine nitrite detection (test code = 82120-8) NEGATIVE NE GATIVE Urine Leukocyte Nrzdixth3489-78-25 22:26:00 Test Item Value Reference Range Comments Leukocyte esterase ur dipstick (test code = 5799-2) MODERATE NEG, TRACE Urine Amphetamines Xoscma4077-75-88 13:13:00 Test Item Value Reference Range Comments Urine amphetamine screening test (test code = Negative Ne gative 03820-7) Urine Barbiturates Hmurgs3034-04-00 13:13:00 Test Item Value Reference Range Comments Urine barbiturates screen (test code = 877435574) Negative Negative Urine Benzodiazepines Dyxrhr2143-55-91 13:13:00 Test Item Value Reference Range Comments Urine benzodiazepines detection by screening method Negative Negative (test code = 80629-8) Urine Cocaine Hlqwli7357-67-94 13:13:00 Test Item Value Reference Range Comments Screening urine benzoylecgonine detection >150 Negative N egative ng/ml (test code = 15254-8) Urine Methadone, Qajodjwkuvq8508-02-33 13:13:00 Test Item Value Reference Range Comments Urine methadone screen (test code = 57611-2) Negative Neg ative Urine Opiates Qjpeso2488-73-61 13:13:00 Test Item Value Reference Range Comments Urine opiates screening test (test code = 16930-9) Negative Negative Urine Phencyclidine Qtkvdk4198-83-73 13:13:00 Test Item Value Reference Range Comments Urine phencyclidine detection by screening method Negative Negative (test code = 16612-2) Urine Marijuana (THC) Pnbtpw2339-00-64 13:13:00 Test Item Value Reference Range Comments Urine cannabinoids detection by screening method Negative Negative (test code = 34473-7) Urine RBC (Auto)2017-01-01 13:04:00 Test Item Value Reference Range Comments Automated urine sediment erythrocyte count by 0-5 0- 5 microscopy (number/high power field) (test code = 03547-4) Urine WBC (Auto)2017-01-01 13:04:00 Test Item Value Reference Range Comments Urine leukocytes detection by automated method (test >20 0-5 code = 25658-0) Urine Epithelial Cells (Auto)2017-01-01 13:04:00 Test Item Value Reference Range Comments Urine squamous epithelial cells detection by automated 4+ NONE SEEN method (test code = 18542-6) Urine Casts (Auto)2017-01-01 13:04:00 Test Item Value Reference Range Comments Urine casts detection by automated method (test code = 1-4 NONE SEEN 91781-1) Urine Bacteria (Auto)2017-01-01 13:04:00 Test Item Value Reference Range Comments Urine bacteria detection by automated method (test 1+ NONE,TRACE code = 74661-3) Urine Tricyclic Liunsxherysgdtx9327-47-88 13:04:00 Test Item Value Reference Range Comments Qualitative urine tricyclic antidepressant Negative Negat ondina measurement (test code = 89030-4) Urine Collection Vtcm1078-60-73 13:02:00 Test Item Value Reference Range Comments UA (urinalysis) (test code = 95005-2) URN,CC Urine Etwrv1501-29-43 13:02:00 Test Item Value Reference Range Comments Urine color determination (test code = 5778-6) YELLOW Y ELLOW Urine Wwkxvtkbto2461-86-06 13:02:00 Test Item Value Reference Range Comments Urine appearance determination (test code = 5767-9) CLOUDY CLEAR Urine Glucose (UA)2017-01-01 13:02:00 Test Item Value Reference Range Comments Urine glucose detection by test strip (test code = NEGATIVE NEGATIVE 88262-7) Urine Qntpqejcd9263-50-32 13:02:00 Test Item Value Reference Range Comments Urine total bilirubin detection by test strip (test NEGATIVE NEGATIVE code = 5770-3) Urine Jxpppvq1314-11-55 13:02:00 Test Item Value Reference Range Comments Urine ketones detection by test strip (test code = NEGATIVE NEGATIVE 2514-8) Urine Specific Tqxbjfx3252-19-76 13:02:00 Test Item Value Reference Range Comments Specific gravity of Urine by Refractometry automated 1.010 1.010-1.025 (test code = 66688-0) Urine Occult Nlyat7748-67-71 13:02:00 Test Item Value Reference Range Comments Urine erythrocytes detection (test code = 70308-6) NEGATIVE NEG, TRACE Urine dP5455-97-56 13:02:00 Test Item Value Reference Range Comments Urine pH measurement (test code = 2756-5) 7.0 5.0-7. 5 Urine Ekvpmap4211-88-15 13:02:00 Test Item Value Reference Range Comments Urine protein detection by test strip (test code = NEGATIVE NEG, TRACE 54792-7) Urine Ivqrbbiwnusq8563-47-59 13:02:00 Test Item Value Reference Range Comments Urine urobilinogen measurement (test code = 56914-5) 0.2 >0.2 Urine Szxwaoo2054-90-41 13:02:00 Test Item Value Reference Range Comments Urine nitrite detection (test code = 81837-3) NEGATIVE NE GATIVE Urine Leukocyte Grhgzxzs5968-97-71 13:02:00 Test Item Value Reference Range Comments Leukocyte esterase ur dipstick (test code = 5799-2) MODERATE NEG, TRACE Urine LER3807-55-10 02:07:00 Test Item Value Reference Range Comments Urine sediment erythrocyte count by microscopy 0-5 0 -5 (number/high power field) (test code = 03450-7) Urine TZT0796-19-73 02:07:00 Test Item Value Reference Range Comments Urine sediment leukocyte count by microscopy >20 0-5 (number/high power field) (test code = 5821-4) Urine Epithelial Nckap7351-50-48 02:07:00 Test Item Value Reference Range Comments Urine sediment epithelial cell count by microscopy 4+ NONE SEEN (number/low power field) (test code = 46214-0) Urine Ajxfoqhv0691-48-71 02:07:00 Test Item Value Reference Range Comments Bacteria detection in urine sediment by light 3+ NO NE,TRACE microscopy (test code = 93198-8) Urine Collection Cwtj2498-80-66 01:53:00 Test Item Value Reference Range Comments UA (urinalysis) (test code = 85545-8) URN,CC Urine Zhwlo3905-56-83 01:53:00 Test Item Value Reference Range Comments Urine color determination (test code = 5778-6) DARK YELLOW Y ELLOW Urine Zuidwwunvf4483-67-56 01:53:00 Test Item Value Reference Range Comments Urine appearance determination (test code = 5767-9) CLOUDY CLEAR Urine Glucose (UA)2016-12-30 01:53:00 Test Item Value Reference Range Comments Urine glucose detection by test strip (test code = NEGATIVE NEGATIVE 24370-7) Urine Ffptaypdc9574-56-74 01:53:00 Test Item Value Reference Range Comments Urine total bilirubin detection by test strip (test NEGATIVE NEGATIVE code = 5770-3) Urine Qtqfbpo7148-09-35 01:53:00 Test Item Value Reference Range Comments Urine ketones detection by test strip (test code = NEGATIVE NEGATIVE 2514-8) Urine Specific Ynblkrb7214-72-26 01:53:00 Test Item Value Reference Range Comments Specific gravity of Urine by Refractometry automated 1.022 1.010-1.025 (test code = 91447-7) Urine Occult Kxvlo4763-33-84 01:53:00 Test Item Value Reference Range Comments Urine erythrocytes detection (test code = 61164-2) NEGATIVE NEG, TRACE Urine gX8126-72-23 01:53:00 Test Item Value Reference Range Comments Urine pH measurement (test code = 2756-5) 6.5 5.0-7. 5 Urine Snsdbcc6743-84-85 01:53:00 Test Item Value Reference Range Comments Urine protein detection by test strip (test code = 30 NEG, TRACE 55905-7) Urine Mdsssoyrfbzg9831-59-06 01:53:00 Test Item Value Reference Range Comments Urine urobilinogen measurement (test code = 75942-1) 1.0 >0.2 Urine Fpxkbzb1458-54-90 01:53:00 Test Item Value Reference Range Comments Urine nitrite detection (test code = 96036-4) NEGATIVE NE GATIVE Urine Leukocyte Npksleln3391-82-99 01:53:00 Test Item Value Reference Range Comments Leukocyte esterase ur dipstick (test code = 5799-2) MODERATE NEG, TRACE Urine Amphetamines Cvosiw4523-54-91 01:15:00 Test Item Value Reference Range Comments Urine amphetamine screening test (test code = Negative Ne gative 12364-6) Urine Barbiturates Udhrrq0940-88-54 01:15:00 Test Item Value Reference Range Comments Urine barbiturates screen (test code = 497499627) Negative Negative Urine Benzodiazepines Nrpyqn6468-59-62 01:15:00 Test Item Value Reference Range Comments Urine benzodiazepines detection by screening method Negative Negative (test code = 56253-4) Urine Cocaine Xlroll7990-17-54 01:15:00 Test Item Value Reference Range Comments Screening urine benzoylecgonine detection >150 Negative N egative ng/ml (test code = 73261-0) Urine Methadone, Kkjsglydolc6590-57-31 01:15:00 Test Item Value Reference Range Comments Urine methadone screen (test code = 92894-7) Negative Neg ative Urine Opiates Ozmqdm7710-62-33 01:15:00 Test Item Value Reference Range Comments Urine opiates screening test (test code = 57670-8) Negative Negative Urine Phencyclidine Avrrdg1828-56-77 01:15:00 Test Item Value Reference Range Comments Urine phencyclidine detection by screening method Negative Negative (test code = 13180-2) Urine Marijuana (THC) Bzosgk7057-18-22 01:15:00 Test Item Value Reference Range Comments Urine cannabinoids detection by screening method Negative Negative (test code = 98408-4) Urine Tricyclic Pjfysyfehtezqtv7001-51-11 01:09:00 Test Item Value Reference Range Comments Qualitative urine tricyclic antidepressant Negative Negat ondina measurement (test code = 58764-8) Random Bgwnufk8971-09-46 19:04:00 Test Item Value Reference Range Comments Serum or plasma glucose measurement (mass/volume) 73 74-99 (test code = 2345-7) Blood Urea Bkpfumnk3037-02-71 19:04:00 Test Item Value Reference Range Comments Serum or plasma urea nitrogen measurement 5 7-18 (mass/volume) (test code = 3094-0) Hsxqwzmkyp0040-03-75 19:04:00 Test Item Value Reference Range Comments Serum or plasma creatinine measurement (mass/volume) 0.35 0.60-1.30 (test code = 2160-0) BUN/Creatinine Fmsqf1794-11-75 19:04:00 Test Item Value Reference Range Comments Blood urea nitrogen/creatinine mass ratio (test code = 14.3 01-10 71404-8) Estimated GFR (Non- Cqlladqr8865-31-51 19:04:00 Test Item Value Reference Range Comments Estimated glomerular filtration rate (GFR) non- > 60 >60 Sudanese (test code = 42159-8) Reference Range: > or = 60 Units: mL/min/1.73 m2 Original MDRD Study Group Equation UsedEstimated GFR ()2016-12-05 19:04:00 Test Item Value Reference Range Comments Estimated glomerular filtration rate (GFR) > 60 >60 Sudanese (test code = 95777-3) Reference Range: > or = 60 Units: mL/min/1.73 m2 Original MDRD Study Group Equation UsedSodium Weahg1755-35-76 19:04:00 Test Item Value Reference Range Comments Serum or plasma sodium measurement (mass or 140 136- 145 moles/volume) (test code = 2951-2) Potassium Heduy4778-43-10 19:04:00 Test Item Value Reference Range Comments Serum or plasma potassium measurement (moles/volume) 3.8 3.5-5.1 (test code = 2823-3) Chloride Otvri9476-12-46 19:04:00 Test Item Value Reference Range Comments Serum or plasma chloride measurement (moles/volume) 108 98-107 (test code = 2075-0) Carbon Dioxide Vmgeq4010-14-54 19:04:00 Test Item Value Reference Range Comments Serum or plasma total carbon dioxide measurement 25 21-32 (moles/volume) (test code = 2028-9) Anion Tsk2548-00-07 19:04:00 Test Item Value Reference Range Comments Serum or plasma anion gap (test code = 28541-7) 7.0 4-16 Calculated Vxzedpjwuy5178-48-22 19:04:00 Test Item Value Reference Range Comments Osmolality of Serum or Plasma by calculation (test 274 280-300 code = 71921-9) Uric Brns2642-25-16 19:04:00 Test Item Value Reference Range Comments Serum or plasma uric acid measurement (mass/volume) 3.7 2.6-6.0 (test code = 3084-1) Calcium Dropn1543-39-42 19:04:00 Test Item Value Reference Range Comments Serum or plasma calcium measurement (mass/volume) 8.4 8.5-10.1 (test code = 36033-3) Total Hqegmhm7364-01-81 19:04:00 Test Item Value Reference Range Comments Serum or plasma protein measurement (mass/volume) 6.4 6.4-8.2 (test code = 2885-2) Farzaty2896-74-34 19:04:00 Test Item Value Reference Range Comments Serum or plasma albumin measurement (mass/volume) 2.5 3.5-5.0 (test code = 1751-7) Total Mcuckclll2927-65-54 19:04:00 Test Item Value Reference Range Comments Serum or plasma total bilirubin measurement 0.2 0.2- 1.0 (mass/volume) (test code = 1975-2) Aspartate Amino Transf (AST/SGOT)2016-12-05 19:04:00 Test Item Value Reference Range Comments Serum or plasma aspartate aminotransferase measurement 10 15-37 (enzymatic activity/volume) (test code = 1920-8) Alanine Aminotransferase (ALT/SGPT)2016-12-05 19:04:00 Test Item Value Reference Range Comments Serum or plasma alanine aminotransferase measurement 14 13-61 (enzymatic activity/volume) (test code = 1742-6) Alkaline Incjbpjrxfr2289-60-21 19:04:00 Test Item Value Reference Range Comments Serum or plasma alkaline phosphatase measurement 113 50-136 (enzymatic activity/volume) (test code = 6768-6) White Blood Mlroe6528-90-21 18:44:00 Test Item Value Reference Range Comments Blood automated leukocyte count (test code = 6690-2) 8.6 4.8-10.8 Red Blood Wkrqz6639-87-32 18:44:00 Test Item Value Reference Range Comments Blood erythrocytes count (number/volume) (test code = 3.80 4.1-5.2 46771-6) Jpyncaewne0064-05-91 18:44:00 Test Item Value Reference Range Comments Blood hemoglobin measurement (mass/volume) (test code 11.4 12.0-16.0 = 718-7) Ydvuuaisvd4637-75-33 18:44:00 Test Item Value Reference Range Comments Blood hematocrit (volume fraction) (test code = 34.9 37.0-47.0 62890-7) Mean Corpuscular Pxmxcz3793-78-12 18:44:00 Test Item Value Reference Range Comments Automated erythrocyte mean corpuscular volume (test 91.8 80.0-98.0 code = 787-2) Mean Corpuscular Qsxkoehimq6054-52-82 18:44:00 Test Item Value Reference Range Comments MCH (test code = 45754-6) 30.1 27.0-32.0 Mean Corpuscular Hemoglobin Ajuuyvh7251-74-37 18:44:00 Test Item Value Reference Range Comments Erythrocyte mean corpuscular hemoglobin concentration 32.8 33.0-36.0 measurement (mass/volume) (test code = 14422-4) Red Cell Distribution Dapio5652-32-09 18:44:00 Test Item Value Reference Range Comments Erythrocyte distribution width ratio (test code = 13.8 10.0-14.5 26793-4) Platelet Fvfxe1077-13-91 18:44:00 Test Item Value Reference Range Comments Blood platelets count (number/volume) (test code = 251 130-251 11242-9) Urine Amphetamines Rlasvf1387-83-15 17:50:00 Test Item Value Reference Range Comments Urine amphetamine screening test (test code = Negative Ne gative 61460-7) Urine Barbiturates Wefyyc4930-32-62 17:50:00 Test Item Value Reference Range Comments Urine barbiturates screen (test code = 237252476) Negative Negative Urine Benzodiazepines Wfukxh1886-09-59 17:50:00 Test Item Value Reference Range Comments Urine benzodiazepines detection by screening method Negative Negative (test code = 06102-1) Urine Cocaine Qgnlyk8573-63-84 17:50:00 Test Item Value Reference Range Comments Screening urine benzoylecgonine detection >150 Negative N egative ng/ml (test code = 62758-0) Urine Methadone, Fimjleadlly4679-28-30 17:50:00 Test Item Value Reference Range Comments Urine methadone screen (test code = 46594-4) Negative Neg ative Urine Opiates Yzhykn1434-01-62 17:50:00 Test Item Value Reference Range Comments Urine opiates screening test (test code = 90334-1) Negative Negative Urine Phencyclidine Xuipwe1333-84-69 17:50:00 Test Item Value Reference Range Comments Urine phencyclidine detection by screening method Negative Negative (test code = 09491-9) Urine Marijuana (THC) Wybbat7290-28-86 17:50:00 Test Item Value Reference Range Comments Urine cannabinoids detection by screening method Negative Negative (test code = 72496-9) Urine Collection Ktnn7870-31-53 17:46:00 Test Item Value Reference Range Comments UA (urinalysis) (test code = 01296-7) CC Urine Cflor8347-62-75 17:46:00 Test Item Value Reference Range Comments Urine color determination (test code = 5778-6) YELLOW Y ELLOW Urine Lknunmozls0010-23-24 17:46:00 Test Item Value Reference Range Comments Urine appearance determination (test code = 5767-9) CLEAR CLEAR Urine Glucose (UA)2016-12-05 17:46:00 Test Item Value Reference Range Comments Urine glucose detection by test strip (test code = NEGATIVE NEGATIVE 67775-6) Urine Osvzeioix6063-89-76 17:46:00 Test Item Value Reference Range Comments Urine total bilirubin detection by test strip (test NEGATIVE NEGATIVE code = 5770-3) Urine Cwmiqto8440-42-30 17:46:00 Test Item Value Reference Range Comments Urine ketones detection by test strip (test code = NEGATIVE NEGATIVE 2514-8) Urine Specific Heknyhj4424-74-43 17:46:00 Test Item Value Reference Range Comments Specific gravity of Urine by Refractometry automated 1.020 1.010-1.025 (test code = 41117-8) Urine Occult Hpzzg6233-19-82 17:46:00 Test Item Value Reference Range Comments Urine erythrocytes detection (test code = 37974-8) NEGATIVE NEG, TRACE Urine bI6309-55-95 17:46:00 Test Item Value Reference Range Comments Urine pH measurement (test code = 2756-5) 7.0 5.0-7. 5 Urine Hwcssot1079-37-78 17:46:00 Test Item Value Reference Range Comments Urine protein detection by test strip (test code = TRACE NEG, TRACE 82795-5) Urine Wbghzydskqyg5554-68-58 17:46:00 Test Item Value Reference Range Comments Urine urobilinogen measurement (test code = 35987-5) 0.2 >0.2 Urine Iwlczym0673-75-36 17:46:00 Test Item Value Reference Range Comments Urine nitrite detection (test code = 96301-2) NEGATIVE NE GATIVE Urine Leukocyte Lktrqojp5561-92-87 17:46:00 Test Item Value Reference Range Comments Leukocyte esterase ur dipstick (test code = 5799-2) SMALL NEG, TRACE Urine Tricyclic Oeayvhuzjqaclkx0375-60-72 17:46:00 Test Item Value Reference Range Comments Qualitative urine tricyclic antidepressant Negative Negat ondina measurement (test code = 67651-2) Urine RBC (Auto)2016-12-05 17:45:00 Test Item Value Reference Range Comments Automated urine sediment erythrocyte count by 0-5 0- 5 microscopy (number/high power field) (test code = 48654-7) Urine WBC (Auto)2016-12-05 17:45:00 Test Item Value Reference Range Comments Urine leukocytes detection by automated method (test 11-20 0-5 code = 49250-6) Urine Epithelial Cells (Auto)2016-12-05 17:45:00 Test Item Value Reference Range Comments Urine squamous epithelial cells detection by automated 4+ NONE SEEN method (test code = 31023-2) Urine Casts (Auto)2016-12-05 17:45:00 Test Item Value Reference Range Comments Urine casts detection by automated method (test code = 1-4 NONE SEEN 09502-3) Urine Bacteria (Auto)2016-12-05 17:45:00 Test Item Value Reference Range Comments Urine bacteria detection by automated method (test TRACE NONE,TRACE code = 13665-1) HIV (1&2) Antibody [id number] 14:41:00 Test Item Value Reference Range Comments Serum, plasma, or whole blood HIV type 1 and type 2 NEGATIVE NEGATIVE antibody detection by rapid immunoassay (test code = 06055-0) This specimen will NOT be sent for confirmatory testing. This SCREENING test is intended to aid the physician in a possible diagnosis related to the presence of HIV-1 or HIV-2. Absence of antibody HIV-1 or HIV-2 CANNOT be taken as absolute proof that an individual is free of HIV-1 or HIV-2 or incapable of transmitting the virus.Rapid Plasma [id number] 14:31:00 Test Item Value Reference Range Comments Qualitative serum rapid plasma reagin (RPR) test NONREACTIVE NONREACTIVE (test code = 81175-0) Urine [id number] 18:29:00 Test Item Value Reference Range Comments Urine sediment erythrocyte count by microscopy 0-5 0 -5 (number/high power field) (test code = 25004-8) Urine [id number] 18:29:00 Test Item Value Reference Range Comments Urine sediment leukocyte count by microscopy 0-5 0-5 (number/high power field) (test code = 5821-4) Urine Epithelial Cbehd5625-82-27 18:29:00 Test Item Value Reference Range Comments Urine sediment epithelial cell count by microscopy 2+ NONE SEEN (number/low power field) (test code = 12748-5) Urine [id number] 18:29:00 Test Item Value Reference Range Comments Urine sediment crystal count by 2+ CALCIUM OXALATE NONE microscopy (number/high power field) (test code = 60004-8) Urine Xtzrkycw6490-22-51 18:29:00 Test Item Value Reference Range Comments Urine sediment bacteria count by microscopy 2+ NONE ,TRACE (number/high power field) (test code = 5769-5) Microscopic Urinalysis Syirgpo6191-17-52 18:29:00 Test Item Value Reference Range Comments Microscopic urinalysis (test code = 11570-8) MUCOUS PRESENT Urine Collection [id number] 17:47:00 Test Item Value Reference Range Comments Urinalysis specimen collection method (test code = URN,CC 57138-4) Urine Sremq1354-26-52 17:47:00 Test Item Value Reference Range Comments Urine color determination (test code = 5778-6) YELLOW Urine Gkwggfdogy2877-53-31 17:47:00 Test Item Value Reference Range Comments Urine appearance determination (test code = 5767-9) CLOUDY Urine Glucose (UA)2016-09-30 17:47:00 Test Item Value Reference Range Comments Glucose [Presence] in Urine (test code = 2349-9) NEGATIVE NEGATIVE Urine Vabdwavbt8004-95-83 17:47:00 Test Item Value Reference Range Comments Bilirubin.total [Presence] in Urine by Automated NEGATIVE NEGATIVE test strip (test code = 09920-6) Urine Lxgyyzp6027-07-83 17:47:00 Test Item Value Reference Range Comments Ketones [Presence] in Urine by Test strip (test NEGATIVE NEGATIVE code = 2514-8) Urine Specific Kcpxjls4760-99-30 17:47:00 Test Item Value Reference Range Comments Specific gravity of Urine (test code = 2965-2) 1.021 1 .010-1.025 Urine Occult [id number] 17:47:00 Test Item Value Reference Range Comments Hemoglobin [Presence] in Urine by Automated test NEGATIVE NEG, TRACE strip (test code = 36220-9) Urine [id number] 17:47:00 Test Item Value Reference Range Comments pH of Urine by Automated test strip (test code = 6.5 84026-2) Urine Hwjanyg8330-77-53 17:47:00 Test Item Value Reference Range Comments Leukocyte esterase [Presence] in Urine by Automated NEGATIVE NEG, TRACE test strip (test code = 58252-6) Urine Appzxiewivhy6838-00-71 17:47:00 Test Item Value Reference Range Comments Urobilinogen [Presence] in Urine by Automated test 0.2 >0.2 strip (test code = 13268-9) Urine Itgwqrh0192-28-38 17:47:00 Test Item Value Reference Range Comments Nitrite [Presence] in Urine by Automated test strip NEGATIVE NEGATIVE (test code = 61017-3) Urine Leukocyte [id number] 17:47:00 Test Item Value Reference Range Comments Urine leukocyte esterase detection by automated test SMALL NEG, TRACE strip (test code = 78793-3) Urine Amphetamines Rigiig2793-26-27 17:45:00 Test Item Value Reference Range Comments Amphetamines [Presence] in Urine by Screen method Negative Negative (test code = 52625-6) Urine MDMA Screen (Ecstasy)2016-09-30 17:45:00 Test Item Value Reference Range Comments Methylenedioxymethamphetamine [Presence] in Urine Negative NEGATIVE by Screen method (test code = 52279-1) Urine Barbiturates Wevvsc6826-87-53 17:45:00 Test Item Value Reference Range Comments Barbiturates [Presence] in Urine by Screen method Negative Negative (test code = 00239-5) Urine Benzodiazepines Ogfbjk8671-45-99 17:45:00 Test Item Value Reference Range Comments Benzodiazepines [Presence] in Urine by Screen Negative Ne gative method (test code = 49386-2) Urine Cocaine Puyphd0622-93-11 17:45:00 Test Item Value Reference Range Comments Benzoylecgonine [Presence] in Urine by Screen Negative Ne gative method (test code = 54829-0) Urine Methadone, Yraaienursw8455-26-51 17:45:00 Test Item Value Reference Range Comments Methadone [Presence] in Urine by Screen method Negative N egative (test code = 81771-5) Urine Opiates Jylmyl0025-67-16 17:45:00 Test Item Value Reference Range Comments Opiates [Presence] in Urine by Screen method (test Negative Negative code = 17206-6) Urine Phencyclidine Tlinva0378-31-28 17:45:00 Test Item Value Reference Range Comments Phencyclidine [Presence] in Urine by Screen method Negative Negative (test code = 14655-0) Urine Marijuana (THC) Yvkdrj8471-08-75 17:45:00 Test Item Value Reference Range Comments Cannabinoids [Presence] in Urine by Screen method Negative Negative (test code = 25256-9) Urine Tricyclic Ppxgbjwrsucnbxs6060-34-35 17:37:00 Test Item Value Reference Range Comments Tricyclic antidepressants [Presence] in Urine by Negative Negative Screen method (test code = 43276-8) Urinalysis with Culture [id number] 01:44:00 Test Item Value Reference Range Comments Urine-Color (test code = Urine-Color) Yellow Yellow Clarity/A (test code = Clarity/A) Clear Clear Specific [employer], Urine (test code = Specific 1.016 1. 002-1.03 [employer], Urine) URINE PH (test code = URINE PH) 6.5 Leukocyte Esterase, UA (test code = Leukocyte 500 /mcL Ne gative /mcL Esterase, UA) Nitrite, Urine (test code = Nitrite, Urine) Negative Nega tive Protein, Ur (test code = Protein, Ur) Negative Negative m g/dL Glucose, Urine (test code = Glucose, Urine) Normal Norm al mg/dL Ketones, Urine (test code = Ketones, Urine) Negative Nega tive mg/dL Urobilinogen, UA (test code = Urobilinogen, UA) Normal Normal mg/dL Bilirubin Urine (test code = Bilirubin Urine) Negative Ne gative mg/dL Blood, Urine (test code = Blood, Urine) Negative Negative /mcL Qualitative, [id number] 01:44:00 Test Item Value Reference Range Comments HCG, Urine (test code = HCG, Urine) Positive Negative Qualitative, [id number] 08:14:00 Test Item Value Reference Range Comments HCG, Urine (test code = HCG, Urine) Negative Negative Hepatic Function [id number] 10:44:00 Test Item Value Reference Range Comments Albumin (test code = Albumin) 4.4 gm/dL 3.5- 5.2 gm/dL Total Protein (test code = Total Protein) 6.4 gm/dL 6.0- 8 .5 gm/dL ASPARTATE AMINOTRANSFERASE (test code = 384 IU/L 11.0- 35 .0 IU/L ASPARTATE AMINOTRANSFERASE) Alkaline Phosphatase (test code = Alkaline 153.0 IU/L 39.0- 117.0 IU/L Phosphatase) Alanine Aminotransferase (test code = Alanine 480 IU/L 10 .0- 40.0 IU/L Aminotransferase) Total Bilirubin (test code = Total Bilirubin) 3.3 mg/dL 0. 2- 1.4 mg/dL Bilirubin, Direct (test code = Bilirubin, 2.7 mg/dL 0.0- 0 .3 mg/dL Direct) Amylase [id number] 10:44:00 Test Item Value Reference Range Comments Amylase (test code = Amylase) 34.0 IU/L 28.0- 100.0 IU/L Urine Rhroycr2428-45-02 15:56:00 Test Item Value Reference Range Comments Preliminary Report (test code = PRE: No growth Preliminary Report) Final Report (test code = Final Report) FINAL: No growth CBC w/ Tbotunsitfmu9485-92-69 15:08:00 Test Item Value Reference Range Comments MPV (test code = MPV) 8.4 fL 9.0- 12.4 fL Differential (test code = Auto Only Differential) WBC (test code = WBC) 8.7 x10(3)/mcL 4.0- 10.0 x10(3)/mcL HGB (test code = HGB) 12.6 gm/dL 12.0- 15.5 gm/dL MCHC (test code = MCHC) 33.1 gm/dL 32.0- 36.5 gm/dL nRBC (test code = nRBC) 0.0 /100 WBC 0.0- 0.0 /100 WBC MCH (test code = MCH) 28.7 pg 26.0- 34.0 pg RDW-SD (test code = RDW-SD) 44.2 fL 35.0- 47.0 fL MCV (test code = MCV) 86.8 fL 80.0- 99.0 fL Nucleated RBC (test code = Nucleated 0.0 x10(3)/mcL 0.0- 0.0 x1 0(3)/mcL RBC) Red Blood Cells (test code = Red 4.41 x10(6)/mcL 4.0- 5.4 x10(6) /mcL Blood Cells) Platelets (test code = Platelets) 275 x10(3)/mcL 150.0- 450.0 x 10(3)/mcL RDW (test code = RDW) 14.5 % 11.5- 14.5 % HCT (test code = HCT) 38.2 % 35.0- 46.0 % Amylase [id number] 15:08:00 Test Item Value Reference Range Comments Amylase (test code = Amylase) 44.0 IU/L 28.0- 100.0 IU/L D-Dimer, Hapacfwxadrq2478-44-40 11:52:00 Test Item Value Reference Range Comments D-Dimer (test code = D-Dimer) < 0.27 0.0- 0.5 mcg/mL FE U Urine Nbgpahl2650-91-05 09:40:00Final Report FINAL:10,000 cfu/ml Normal skin/urogenital gumaro [place] [facility]/[id number] 19:02:00 Test Item Value Reference Range Comments ABORh (test code = ABORh) B POS CHECK [id number] 19:02:00 Test Item Value Reference Range Comments ABO/RH REPEAT (test code = ABO/RH REPEAT) B POS BLOOD BANK [id number] 19:02:00Comment: Comment: This patient's ABO/Rh test did not have a historical record for comparison to a previous blood type.It is strongly recommended that you verify these results against your records and/or by ordering another ABO/Rh Repeat for confirmation of the blood type. [place] CONVERSIONUrinalysis with Culture [id number] 09:06:00 Test Item Value Reference Range Comments Specific [employer], Urine (test code = Specific 1.012 1. 002-1.03 [employer], Urine) Clarity/A (test code = Clarity/A) Clear Clear URINE PH (test code = URINE PH) 7 Nitrite, Urine (test code = Nitrite, Urine) Negative Nega tive Urine-Color (test code = Urine-Color) Yellow Yellow Leukocyte Esterase, UA (test code = Leukocyte Negative Ne gative /mcL Esterase, UA) Blood, Urine (test code = Blood, Urine) Negative Negative /mcL Urobilinogen, UA (test code = Urobilinogen, UA) Normal Normal mg/dL Bilirubin Urine (test code = Bilirubin Urine) Negative Ne gative mg/dL Protein, Ur (test code = Protein, Ur) Negative Negative m g/dL Glucose, Urine (test code = Glucose, Urine) Normal Norm al mg/dL Ketones, Urine (test code = Ketones, Urine) Negative Nega tive mg/dL Urinalysis with [id number] 23:46:00 Test Item Value Reference Range Comments Ketones, Urine (test code = Ketones, Urine) 15 mg/dL Nega tive mg/dL Specific [employer], Urine (test code = Specific 1.019 1. 002-1.03 [employer], Urine) Clarity/A (test code = Clarity/A) Clear Clear URINE PH (test code = URINE PH) 6 Nitrite, Urine (test code = Nitrite, Urine) Negative Nega tive Urine-Color (test code = Urine-Color) Yellow Yellow Leukocyte Esterase, UA (test code = Leukocyte Negative Ne gative /mcL Esterase, UA) Blood, Urine (test code = Blood, Urine) Negative Negative /mcL Urobilinogen, UA (test code = Urobilinogen, UA) Normal Normal mg/dL Bilirubin Urine (test code = Bilirubin Urine) Negative Ne gative mg/dL Protein, Ur (test code = Protein, Ur) Negative Negative m g/dL Glucose, Urine (test code = Glucose, Urine) Normal Norm al mg/dL Urinalysis with [id number] 23:46:00 Test Item Value Reference Range Comments RBC, UA (test code = RBC, UA) 2-5 0- 2 /HPF Bacteria, Urine/H (test code = Bacteria, Urine/H) 3+ Negative /HPF WBC, UA (test code = WBC, UA) 5-10 Squam Epithel, UA (test code = Squam Epithel, UA) 5-10 Mucus, Urine/H (test code = Mucus, Urine/H) 1+ CHEST PA/LATPAT NAME: HANNA CLAROS : 1995ADDRESS: [address] SEX: FPHONE: AGE: 22PRIORITY: ERLOCATION: ERM ORD PHY: GRIFFIN COHEN, EMERGENCYMR#: [id number] PT CLASS: REG ERDATE OF EXAM: 07/05/2017EXAMINATION: CHEST PA/LATExam: 2 viewsof the chest.Date of Exam: 07/05/2017Indications: Shortness of breath, complaining of sore throat, fever, chills, dizziness and vomitingComparison: NoneFindings: There are no focal infiltrates or pleural effusions. There is no pulmonary vascularcongestion or pneumothorax. The cardiac and mediastinal silhouettes are unremarkable in appearance.There are no acute abnormalities within the visualized bony t horax.Impression: No acute pulmonary process.Final report electronically signed by: Isabel Mcdonald MDINTERPRETING PHYSICIAN: ZA MCDONALD MDThis document has been electronically signed by ZA MCDONALD MD on 07/05/2017 18:26:17.Order # [id number] Assessments Condition Name Status Diagnosis Date Treating Clinici an Unsp abnormal cytolog findings in Active specmn from cervix uteri Morbid (severe) obesity due to excess Active calories Body mass index (BMI) 45.0-49.9, adult Active Endometriosis, unspecified Active 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 Active Unspecified infection of urinary tract Active in , first trimester Obesity complicating , first Active trimester Morbid (severe) obesity due to excess Active calories Smoking (tobacco) complicating Active , first trimester Nicotine dependence, cigarettes, Active uncomplicated Less than 8 weeks gestation of Active - urine test confirms Active 2016-05-13 00:00: 00 Calculus of gallbladder without Active cholecystitis without obstruction Calculus of gallbladder with chronic Active cholecystitis without obstruction Major depressive disorder, single Active episode, unspecified Morbid (severe) obesity due to excess Active calories Body mass index (BMI) 40.0-44.9, adult Active Other cholelithiasis without Active obstruction Disease of biliary tract, unspecified Active Other specified abnormal findings of Active blood chemistry Morbid (severe) obesity due to excess Active calories Body mass index (BMI) 40.0-44.9, adult Active Nicotine dependence, cigarettes, Active uncomplicated Other snf (current) drug therapy Active Calculus of gallbladder without Active cholecystitis without obstruction Epigastric pain Active Calculus of gallbladder without Active cholecystitis without obstruction Acute gastritis without bleeding Active Morbid (severe) obesity due to excess Active calories Precordial pain Active Residual hemorrhoidal skin tags Active Other chest pain Active Morbid (severe) obesity due to excess Active calories Vomiting, unspecified Active Nicotine dependence, cigarettes, Active uncomplicated Encounter for supervision of other Active normal , third trimester Obstetric high vaginal laceration alone Active Single live Active 40 weeks gestation of Active labor without delivery, third Active trimester Smoking (tobacco) complicating Active , third trimester Dehydration Active Morbid (severe) obesity due to excess Active calories Nicotine dependence, cigarettes, Active uncomplicated 39 weeks gestation of Active Weeks of gestation of not Active specified Other specified related Active conditions, unspecified trimester Premature rupture of membranes, Active unspecified as to length of time between rupture and onset of labor, unspecified weeks of gestation Other specified related Active conditions, third trimester Weeks of gestation of not Active specified Unspecified abdominal pain Active Other specified related Active conditions, third trimester 32 weeks gestation of Active Unspecified fall, initial encounter Active Low back pain Active Other specified diseases and conditions Active complicating , childbirth and the puerperium Myalgia Active Obesity complicating , third Active trimester Morbid (severe) obesity due to excess Active calories Smoking (tobacco) complicating Active , third trimester Nicotine dependence, cigarettes, Active uncomplicated 32 weeks gestation of Active Other specified related Active conditions, third trimester Smoking (tobacco) complicating Active , third trimester 29 weeks gestation of Active Left lower quadrant pain Active Encounters Start End Encounter Admission Attending Care Care Encounter Date/Time Date/Time Type Type Clinicians Facility Department ID 2019-09-15 2019-09-15 Outpatient [facility] [id number] 13:12:10 14:29:29 [id number] 2019-09-15 2019-09-15 [facility] [id number] 00:00:00 00:00:00 2019-09-14 2019-09-14 [facility] [id number] 13:20:00 13:40:00 2019-09-14 2019-09-14 Outpatient [facility] [id number] 00:00:00 00:00:00 [id number] 2019-09-14 2019-09-14 [facility] [id number] 00:00:00 00:00:00 2019-09-14 2019-09-14 [facility] [id number] 00:00:00 00:00:00 2019-09-14 2019-09-14 [facility] [id number] 00:00:00 00:00:00 2018-05-20 2018-05-20 Outpatient [facility] [id number] 00:00:00 23:59:00 [id number] 2018-03-05 2018-03-05 Outpatient Bundle, [facility] [id number] 13:30:00 13:30:00 Lacie Burnett [id number] s [id number] and [facility] [place] 2017-07-14 2017-07-14 Departed [facility] Johnie [id number] 02:08:00 02:45:[address] 2017-07-05 2017-07-05 Departed [facility] [id number] 17:56:00 19:17:[address] 2017-06-18 2017-06-18 Outpatient [facility] [id number] 00:00:00 23:59:00 [id number] 2017-05-20 2017-05-20 Outpatient [facility] [id number] 00:00:00 00:00:00 [id number] 2017-05-16 Outpatient [facility] [id number] 10:30:15 10:48:01 [id number] 2017-05-16 2017-05-16 Outpatient [facility] [id number] 00:00:00 00:00:00 [id number] 2017-05-02 Outpatient [facility] [id number] 11:06:30 12:01:18 [id number] 2017-05-02 2017-05-02 Outpatient [facility] [id number] 00:00:00 00:00:00 [id number] 2017-04-07 2017-04-07 Outpatient Jackelyn LOUIE, [facility] Physicians 18 [id number] 00:00:00 00:00:00 Hattie Thrasher - [id number] Gynecological Oncology 2017-03-12 2017-03-12 Outpatient [facility] [id number]_ 15:15:00 16:02:22 [id number] 2017-03-12 2017-03-12 Outpatient [facility] [id number] 00:00:00 00:00:00 [id number] 2017-03-07 Departed [facility] [id number] 23:05:00 23:30:00 Emergency [facility] 2017-03-07 2017-03-07 Departed [facility] [id number] 20:26:00 21:11:[address] 2017-02-24 2017-02-24 Departed [facility] [id number] 05:36:00 12:52:[address] 2017-02-23 2017-02-23 Outpatient [facility] [id number]_ 12:37:33 12:37:46 [id number] 2017-02-20 2017-02-20 Registered [facility] [id number] 10:33:00 10:33:[address] 2017-02-11 2017-02-11 Outpatient [facility] [id number] 15:44:40 17:00:55 [id number] 2017-02-11 2017-02-11 Outpatient [facility] [id number] 00:00:00 00:00:00 [id number] 2017-02-11 Outpatient [facility] [id number] 00:00:00 00:00:00 [id number] 2017-01-17 Outpatient [facility] [id number]_ 09:43:02 09:43:21 [id number] 2017-01-02 2017-01-04 Discharged [facility] [id number] 21:57:00 11:34:[address] 2017-01-02 2017-01-02 Outpatient [facility] [id number]_ 13:09:29 23:59:00 [id number] 2017-01-02 2017-01-02 Outpatient [facility] [id number] 00:00:00 00:00:00 [id number] 2017-01-01 Departed [facility] [id number] 12:19:00 13:54:[address] 2016-12-30 2016-12-30 Departed [facility] [id number] 00:33:00 02:19:[address] 2016-12-23 2016-12-23 Outpatient [facility] [id number] 00:00:00 23:59:00 [id number] 2016-12-19 Outpatient [facility] [id number] 00:00:00 00:00:00 [id number] 2016-12-10 Outpatient [facility] [id number]_ 09:26:19 23:59:00 [id number] 2016-12-10 2016-12-10 Outpatient [facility] [id number]_ 09:26:02 11:31:41 [id number] 2016-12-10 2016-12-10 [facility] [id number]_ 00:00:00 00:00:00 [id number] 2016-12-05 Departed [facility] Johnie [id number] 17:20:00 19:30:[address] 2016-12-03 2016-12-03 Outpatient [facility] [id number]_ 00:00:00 23:59:00 [id number] 2016-11-29 2016-11-29 Outpatient [facility] [id number] 00:00:00 00:00:00 [id number] 2016-11-15 2016-11-15 Outpatient [facility] [id number]_ 09:53:20 11:24:09 [id number] 2016-11-15 2016-11-15 [facility]patient [facility] [id number]_ 09:52:57 11:23:20 [id number] 2016-11-15 2016-11-15 Outpatient [facility] [id number] 00:00:00 00:00:00 [id number] 2016-10-18 Registered [facility] Johnie [id number] 11:36:00 11:36:[address] 2016-09-30 2016-09-30 Departed [facility] Johnie [id number] 16:48:00 18:25:[address] 2016-08-02 2016-08-02 Outpatient Jackelyn LOUIE, [facility] Physicians [id number] 00:00:00 00:00:00 Hattie Thrasher - [id number] Gynecological Oncology 2016-05-14 2016-05-14 Emergency ERIC Barreto [id number] 00:26:00 05:06:00 Daquan 2016-05-14 2016-05-14 [facility] [id number] 00:00:00 00:00:00 2016-05-14 2016-05-14 [facility] [id number] 00:00:00 00:00:00 2016-05-14 2016-05-14 [facility] [id number] 00:00:00 00:00:00 2016-05-13 2016-05-13 [place] [id number] 00:00:00 00:00:00 [facility] [id number] [facility] [id number] 2016-02-10 2016-02-10 [facility] [id number] 00:00:00 00:00:00 2016-02-09 2016-02-09 U ERIC Decker REYES [id number] 08:00:51 23:59:59 Pete 2016-02-09 2016-02-09 [facility] [id number] 00:00:00 00:00:00 2016-02-09 2016-02-09 [facility] [id number] 00:00:00 00:00:00 2016-02-09 2016-02-09 [facility] [id number] 00:00:00 00:00:00 2016-02-06 2016-02-06 U Robin REYES REYES [id number] 09:51:35 14:30:00 Tyrone eastman 2016-02-06 2016-02-06 [facility] [id number] 00:00:00 00:00:00 2016-02-06 2016-02-06 [facility] [id number] 00:00:00 00:00:00 2016-02-06 2016-02-06 [facility] [id number] 00:00:00 00:00:00 2016-01-31 2016-01-31 Outpatient Robin SerranoanERIC REYES [id number] 10:19:50 23:59:59 Pete 2016-01-31 2016-01-31 [facility] [id number] 00:00:00 00:00:00 2016-01-31 2016-01-31 [facility] [id number] 00:00:00 00:00:00 2016-01-30 2016-01-30 Emergency E Joyce ERIC REYES [id number] 14:35:00 20:05:00 Emani hinojosa 2016-01-30 2016-01-30 [facility] [id number] 00:00:00 00:00:00 2016-01-30 2016-01-30 [facility] [id number] 00:00:00 00:00:00 2016-01-30 2016-01-30 [facility] [id number] 00:00:00 00:00:00 2016-01-30 2016-01-30 [facility] [id number] 00:00:00 00:00:00 2016-01-28 2016-01-28 Emergency E Bert ERIC REYES [id number] 09:51:00 14:43:00 Thai 2016-01-28 2016-01-28 [facility] [id number] 00:00:00 00:00:00 2016-01-28 2016-01-28 [facility] [id number] 00:00:00 00:00:00 2016-01-28 2016-01-28 [facility] [id number] 00:00:00 00:00:00 2016-01-28 2016-01-28 [facility] [id number] 00:00:00 00:00:00 2016-01-02 2016-01-02 Emergency E JohnsonJennifer ERIC REYES [id number] 08:29:00 11:25:00 2016-01-02 2016-01-02 [facility]patient [facility] [id number] 00:00:00 00:00:00 2016-01-02 2016-01-02 [facility]patient [facility] [id number] 00:00:00 00:00:00 2015-12-05 2015-12-07 Inpatient Robin Rodriguez ERIC REYES [id number] 16:40:00 19:38:00 Katelyn 2015-12-05 2015-12-05 [facility] [id number] 00:00:00 00:00:00 2015-12-05 2015-12-05 [facility] [id number] 00:00:00 00:00:00 2015-12-05 2015-12-05 [facility] [id number] 00:00:00 00:00:00 2015-12-01 2015-12-01 Inpatient C ERIC Escobedo REYES [id number] 00:17:46 01:50:00 Yannick 2015-12-01 2015-12-01 [facility] [id number] 00:00:00 00:00:00 2015-11-22 2015-11-22 Inpatient C ERIC Rodriguez REYES [id number] 20:54:59 22:03:00 Katelyn 2015-11-22 2015-11-22 [facility] [id number] 00:00:00 00:00:00 2015-11-13 2015-11-13 Inpatient C Ger Isaacs ERIC REYES [id number] 22:02:35 23:15:00 2015-11-13 2015-11-13 [facility] [id number] 00:00:00 00:00:00 2015-10-13 2015-10-13 Inpatient Robin Kessler REYES REYES [id number] 18:06:51 20:50:00 Murray 2015-10-13 2015-10-13 [facility] [id number] 00:00:00 00:00:00 2015-10-13 2015-10-13 [facility] [id number] 00:00:00 00:00:00 2015-10-06 2015-10-06 Emergency E Nino Vivar REYES REYES [id number] 08:49:00 12:32:00 2015-10-06 2015-10-06 [facility] [id number] 00:00:00 00:00:00 2015-10-06 2015-10-06 [facility] [id number] 00:00:00 00:00:00 2015-09-16 2015-09-17 Inpatient U ERIC Escobedo REYES [id number] 23:06:40 01:30:00 Yannick 2015-09-16 2015-09-16 [facility] [id number] 00:00:00 00:00:00 2015-09-16 2015-09-16 Outpatient [facility] [id number] 00:00:00 00:00:00 Payers Payer Name Policy Type Policy Number Effective Date Expiration D ate [place] [id number] 2016 00:00:00 Medicaid [id number] 2017 00:00:00 00:00:00 Medicd Lisa Acc 2 [id number] 2015 00:00:00 Plan of Treatment Planned Activity Planned Date Details Comments Future Scheduled Test [code = ] Future Scheduled Test [code = ] Future Scheduled Test [code = ] Future Scheduled Test [code = ] Future Scheduled Test [code = ] Future Scheduled Test [code = ] Future Scheduled Test [code = ] Future Scheduled Test [code = ] Social History Social Habit Start Date Stop Date Comments Sex Assigned At Tobacco smoking status NHIS 2017-05-16 00:00:00 2017-05-16 00:00 :00 Alcohol intake 2017-05-16 00:00:00 2017-05-16 00:00:00 Smoking Status Start Date Stop Date Light tobacco smoker 2016-01-18 00:00:00 Vital Signs Vital Name Observation Time Observation Value Comments SBP 2016-05-13 00:00:00 123.00 mm[Hg] Pulse 2016-05-13 00:00:00 87.00 /min Weight 2016-05-13 00:00:00 248.19 (lbs) BMI 2016-05-13 00:00:00 0.00 DBP 2016-05-13 00:00:00 70.00 mm[Hg] WEIGHT 2017-07-14 02:08:00 132.587249 kg HEIGHT 2017-07-14 02:08:00 165.960686 cm WEIGHT 2017-07-05 17:56:00 132.133880 kg HEIGHT 2017-07-05 17:56:00 165.082314 cm WEIGHT 2017-03-07 23:05:00 120.494841 kg HEIGHT 2017-03-07 23:05:00 165.018585 cm WEIGHT 2017-03-07 20:26:00 120.831080 kg HEIGHT 2017-03-07 20:26:00 165.992610 cm WEIGHT 2017-02-24 05:36:00 119.544884 kg HEIGHT 2017-02-24 05:36:00 165.956744 cm WEIGHT 2017-01-02 21:57:00 124.123883 kg HEIGHT 2017-01-02 21:57:00 165.352942 cm WEIGHT 2016-12-30 00:33:00 117.266522 kg HEIGHT 2016-12-30 00:33:00 165.1 cm SYSTOLIC BLOOD PRESSURE 2016-05-14 05:05:32 125 mm[Hg] DIASTOLIC BLOOD PRESSURE 2016-05-14 05:05:32 72 mm[Hg] SYSTOLIC BLOOD PRESSURE 2016-02-09 14:56:08 115 mm[Hg] DIASTOLIC BLOOD PRESSURE 2016-02-09 14:56:08 70 mm[Hg] WEIGHT 2016-02-09 08:59:53 113.4 kg HEIGHT 2016-02-09 08:59:49 164 cm SYSTOLIC BLOOD PRESSURE 2016-02-06 14:19:32 107 mm[Hg] DIASTOLIC BLOOD PRESSURE 2016-02-06 14:19:32 70 mm[Hg] HEIGHT 2016-02-06 10:17:01 164 cm WEIGHT 2016-02-06 10:17:01 114.4 kg SYSTOLIC BLOOD PRESSURE 2016-01-30 20:04:22 116 mm[Hg] DIASTOLIC BLOOD PRESSURE 2016-01-30 20:04:22 80 mm[Hg] SYSTOLIC BLOOD PRESSURE 2016-01-28 13:31:49 154 mm[Hg] DIASTOLIC BLOOD PRESSURE 2016-01-28 13:31:49 65 mm[Hg] SYSTOLIC BLOOD PRESSURE 2016-01-02 11:00:36 106 mm[Hg] DIASTOLIC BLOOD PRESSURE 2016-01-02 11:00:36 79 mm[Hg] SYSTOLIC BLOOD PRESSURE 2015-12-07 17:00:03 122 mm[Hg] DIASTOLIC BLOOD PRESSURE 2015-12-07 17:00:03 78 mm[Hg] HEIGHT 2015-12-06 03:12:53 164 cm WEIGHT 2015-12-06 03:12:53 124.95 kg SYSTOLIC BLOOD PRESSURE 2015-12-01 01:09:12 133 mm[Hg] DIASTOLIC BLOOD PRESSURE 2015-12-01 01:09:12 77 mm[Hg] HEIGHT 2015-12-01 01:00:54 164 cm WEIGHT 2015-12-01 01:00:54 127 kg SYSTOLIC BLOOD PRESSURE 2015-11-22 22:14:51 138 mm[Hg] DIASTOLIC BLOOD PRESSURE 2015-11-22 22:14:51 85 mm[Hg] HEIGHT 2015-11-22 21:13:55 164 cm WEIGHT 2015-11-22 21:13:55 122.2 kg SYSTOLIC BLOOD PRESSURE 2015-11-13 23:10:17 113 mm[Hg] DIASTOLIC BLOOD PRESSURE 2015-11-13 23:10:17 56 mm[Hg] HEIGHT 2015-11-13 22:26:57 164 cm WEIGHT 2015-11-13 22:26:57 124.6 kg SYSTOLIC BLOOD PRESSURE 2015-10-13 20:24:27 125 mm[Hg] DIASTOLIC BLOOD PRESSURE 2015-10-13 20:24:27 66 mm[Hg] HEIGHT 2015-10-13 18:33:10 164 cm WEIGHT 2015-10-13 18:33:10 125 kg SYSTOLIC BLOOD PRESSURE 2015-10-06 10:57:29 124 mm[Hg] DIASTOLIC BLOOD PRESSURE 2015-10-06 10:57:29 72 mm[Hg] SYSTOLIC BLOOD PRESSURE 2015-09-17 01:59:57 104 mm[Hg] DIASTOLIC BLOOD PRESSURE 2015-09-17 01:59:57 59 mm[Hg] HEIGHT 2015-09-16 23:21:56 164 cm WEIGHT 2015-09-16 23:21:56 124.8 kg Hospital Discharge Instructions Discharge Instructions Discharge Instructions Activity: Walk with Assistance Discharge Instructions Discharge Instructions Activity: Walk with Assistance Discharge Instructions Discharge Instructions Activity: Walk with Assistance Discharge Instructions Discharge Instructions Activity: Walk with Assistance Discharge Instructions Discharge Instructions Activity: Walk with Assistance Discharge Instructions Discharge Instructions Activity: Up ad libNo hospital discharge instruction information available.No hospital discharge instruction information available.No hospital discharge instruction information available.
== END 2020-02-02 02:15 | disposition left against medical advice (07) ==
LOC: ER 00:13
DX: R06.02 Shortness of breath (principal); H00.014 Hordeolum externum left upper eyelid; F17.210 Nicotine dependence, cigarettes, uncomplicated; R00.0 Tachycardia, unspecified; Z20.828 Contact with and (suspected) exposure to other viral communicable diseases; Z53.20 Procedure and treatment not carried out because of patient's decision for unspecified reasons
CPT/HCPCS: 99281